=== PATIENT | male | born 1970 | race African-American/Black ===

== ENCOUNTER 2019-10-22 18:42 | Inpatient (IN) | payer OTHER ==
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
[2019-10-22 19:39] VITALS: BMI 21.8
[2019-10-22] MEDS ORDERED: MAG HYDROX/AL HYDROX/SIMETH 30 ML UNIT-DOSE CUP PO PRN (19:40)
[2019-10-22] MEDS ORDERED: ACETAMINOPHEN 325 MG TABLET (FP) PO PRN ×2 (19:40)
[2019-10-22] MEDS ORDERED: METHOCARBAMOL 500 MG TABLET PO PRN (19:40)
[2019-10-22] MEDS ORDERED: MAGNESIUM HYDROX 2400MG/30ML ORAL SUSPENSION 30 ML CUP PO PRN (19:40)
[2019-10-22] MEDS ORDERED: MAGNESIUM CITRATE 300 ML BOTTLE PO PRN (19:40)
[2019-10-22] MEDS ORDERED: NICOTINE POLACRILEX 2 MG GUM BUC PRN (19:40)
[2019-10-22] MEDS ORDERED: BISMUTH SUBSALICYLATE 524 MG/30 ML UD PO PRN (19:40)
[2019-10-22] MEDS ORDERED: IBUPROFEN 400 MG TABLET (FP) PO PRN (19:40)
[2019-10-22] MEDS ORDERED: diazePAM 5 MG TABLET PO PRN (19:40)
[2019-10-22] MEDS ORDERED: MENTHOL/PHENOL 1 EACH UD MM PRN (19:40)
[2019-10-22] MEDS ORDERED: ONDANSETRON *ODT* 4 MG TABLET SL PRN (19:40)
--- OUTSIDE RECORDS SUMMARY | 2019-10-22 19:57 | XMS ---
:1970 Author Organization [facility] Support Name Relationship Address Phone UE Unavailable Unavailable Unavailable [facility] [address] [place] [place] [address] Re-disclosure Warning The records that you are about to access may contain information from federally- assisted alcohol or drug abuse programs. If such information is present, then the following federally mandated warning applies: This information has been disclosed to you from records protected by federal confidentiality rules (42 CFR part 2). The federal rules prohibit you from making any further disclosure of this information unless further disclosure is expressly permitted by the written consent of the person to whom it pertains or as otherwise permitted by 42 CFR part 2. A general authorization for the release of medical or other information is NOT sufficient for this purpose. The Federal rules restrict any use of the information to criminally investigate or prosecute any alcohol or drug abuse patient.The records that you are about to access may contain highly sensitive health information, the redisclosure of which is protected by Article 27-F of the [facility] Public Health law. If you continue you may haveaccess to information: Regarding HIV / AIDS; Provided by facilities licensed or operated by the [facility] Office of Mental Health; or Provided by the [facility] Office for People With Developmental Disabilities. If such information is present, then the following [facility] mandated warning applies: This information has been disclosed to you from confidential records which are protected by state law. State law prohibits you from making any further disclosure of this information without the specific written consent of the person to whom it pertains, or as otherwise permitted by law. Any unauthorized further disclosure in violation of state law may result in a fine or chcf sentence or both. A general authorization for the release of medical or other information is NOT sufficient authorization for further disclosure. Insurance Providers Payer name Policy type Policy ID Covered Covered republican's Policy P keila / Coverage republican ID relationship to Pierre Inf ormation type pierre BEACON [id number] SP [id number] OSCAR
[2019-10-22] MEDS: ASPIRIN 81 MG CHEWABLE TABLETS PO SCH (21:43)
[2019-10-22] MEDS: NICOTINE 21 MG/24 HOURS TOPICAL PATCH TD SCH (21:43)
[2019-10-22] MEDS: PRENATAL VITAMINS W/ FOLIC ACID TABLET (FP) PO SCH (21:50)
[2019-10-22] MEDS: hydrOXYzine PAMOATE 25 MG CAPSULE (FP) PO SCH (22:45)
[2019-10-22] MEDS: THIAMINE HCL 100 MG TABLET (FP) PO SCH (22:45)
[2019-10-22] MEDS: diazePAM 5 MG TABLET PO SCH (22:45)
[2019-10-22] MEDS: MELATONIN 5 MG TABLETS PO SCH (22:46)
[2019-10-23] MEDS: diazePAM 5 MG TABLET PO SCH ×4 (06:01→22:04)
[2019-10-23] MEDS: hydrOXYzine PAMOATE 25 MG CAPSULE (FP) PO SCH (06:01)
[2019-10-23] MEDS ORDERED: hydrOXYzine PAMOATE 25 MG CAPSULE (FP) PO PRN (08:35)
--- NOTE | 2019-10-23 09:02 | EKG ---
Test Reason : Blood Pressure : / mmHG Vent. Rate : 061 BPM Atrial Rate : 061 BPM P-R Int : 148 ms QRS Dur : 082 ms QT Int : 384 ms P-R-T Axes : 064 061 021 degrees QTc Int : 386 ms NORMAL SINUS RHYTHM T WAVE ABNORMALITY, CONSIDER ANTERIOR ISCHEMIA ABNORMAL ECG NO PREVIOUS ECGS AVAILABLE Confirmed by MD KITTY, AJ ([id number]) on 10/23/2019 9:02:08 AM Referred By: Confirmed By:AJ TANG MD
--- NOTE | 2019-10-23 09:51 | PN ---
S CIWA - CIWA Score Nausea/Vomitin Muscle Tremors: 3 Anxiety: 2 Agitation: 2 Paroxysmal Sweats: 1-Minimal Palms Moist Orientation: 0-Oriented Tacttile Disturbances: 1-Very Mild Itch/Numbness Auditory Disturbances: 0-None Visual Disturbances: 0-None Headache: 2-Mild CIWA-Ar Total Score: 13 BHS Progress Note (SOAP) Subjective: alert,irritable,anxious,interrupted sleep,tremor Objective: 10/23/19 12:08 Vital Signs Temperature 98.5 F 10/23/19 08:48 Pulse Rate 82 10/23/19 08:48 Respiratory Rate 20 10/23/19 08:48 Blood Pressure 108/61 10/23/19 08:48 O2 Sat by Pulse Oximetry (%) 95 10/23/19 08:48 Laboratory Last Values WBC 5.2 K/mm3 (4.0-10.0) 10/23/19 07:45 RBC 4.37 M/mm3 (4.00-5.60) 10/23/19 07:45 Hgb 13.4 GM/dL (11.7-16.9) 10/23/19 07:45 Hct 40.0 % (35.4-49) 10/23/19 07:45 MCV 91.7 fl (80-96) 10/23/19 07:45 MCH 30.7 pg (25.7-33.7) 10/23/19 07:45 MCHC 33.5 g/dl (32.0-35.9) 10/23/19 07:45 RDW 14.0 % (11.9-15.9) 10/23/19 07:45 Plt Count 234 K/MM3 (134-434) 10/23/19 07:45 MPV 8.1 fl (7.5-11.1) 10/23/19 07:45 Sodium 138 mmol/L (136-145) 10/23/19 07:45 Potassium 3.9 mmol/L (3.5-5.1) 10/23/19 07:45 Chloride 103 mmol/L (98-107) 10/23/19 07:45 Carbon Dioxide 27 mmol/L (21-32) 10/23/19 07:45 Anion Gap 8 MMOL/L (8-16) 10/23/19 07:45 BUN 10.2 mg/dL (7-18) 10/23/19 07:45 Creatinine 0.8 mg/dL (0.55-1.3) 10/23/19 07:45 Est GFR (CKD-EPI)AfAm 123.29 10/23/19 07:45 Est GFR (CKD-EPI)NonAf 106.38 10/23/19 07:45 Random Glucose 80 mg/dL (74-106) 10/23/19 07:45 Calcium 9.0 mg/dL (8.5-10.1) 10/23/19 07:45 Total Bilirubin 1.6 mg/dL (0.2-1) H 10/23/19 07:45 AST 15 U/L (15-37) 10/23/19 07:45 ALT 18 U/L (13-61) 10/23/19 07:45 Alkaline Phosphatase 50 U/L (45-117) 10/23/19 07:45 Total Protein 6.9 g/dl (6.4-8.2) 10/23/19 07:45 Albumin 3.4 g/dl (3.4-5.0) 10/23/19 07:45 Syphilis Serology Non-reactive (NONREACTIVE) 10/23/19 07:45 HIV Ag/Ab Combo Qual Negative (NEGATIVE) 10/23/19 07:45 Assessment: 10/23/19 12:09 withdrawal symptom Plan: continue detox valium regimen,bili 1.6,to repeat bilirubin in am
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
[2019-10-23 10:31] LABS: HEMOGLOBIN 13.4 GM/dL (11.7-16.9); MCH 30.7 pg (25.7-33.7); MCHC 33.5 g/dl (32.0-35.9); MEAN CELL VOLUME 91.7 fl (80-96); MEAN PLT VOLUME 8.1 fl (7.5-11.1); PLATELET COUNT 234 K/MM3 (134-434); RBC 4.37 M/mm3 (4.00-5.60); WHITE BLOOD COUNT 5.2 K/mm3 (4.0-10.0)
[2019-10-23 10:46] LABS: POTASSIUM 3.9 mmol/L (3.5-5.1)
[2019-10-23 11:00] LABS: ALBUMIN 3.4 g/dl (3.4-5.0); BILIRUBIN,TOTAL 1.6 mg/dL (0.2-1); BLOOD UREA NITROGEN 10.2 mg/dL (7-18); CREATININE 0.8 mg/dL (0.55-1.3); TOT PROT 6.9 g/dl (6.4-8.2)
[2019-10-23] MEDS: PRENATAL VITAMINS W/ FOLIC ACID TABLET (FP) PO SCH (11:22)
[2019-10-23] MEDS: ASPIRIN 81 MG CHEWABLE TABLETS PO SCH (11:22)
[2019-10-23] MEDS: NICOTINE 21 MG/24 HOURS TOPICAL PATCH TD SCH (11:22)
[2019-10-23] MEDS ORDERED: PNEUMOC 13-VAL CONJ-DIP CRM/PF 0.5 ML DISP.SYRIN IM ONE (12:00)
[2019-10-23] MEDS: THIAMINE HCL 100 MG TABLET (FP) PO SCH (22:04)
[2019-10-23] MEDS: MELATONIN 5 MG TABLETS PO SCH (22:05)
[2019-10-24] MEDS: diazePAM 5 MG TABLET PO SCH ×3 (05:33→22:15)
[2019-10-24] MEDS ORDERED: guaiFENesin 200 MG/10 ML 10 ML UNIT-DOSE CUPS PO PRN (09:16)
--- NOTE | 2019-10-24 10:10 | PN ---
S CIWA - CIWA Score Nausea/Vomitin-No Nausea/No Vomiting Muscle Tremors: 2 Anxiety: 2 Agitation: 2 Paroxysmal Sweats: 2 Orientation: 0-Oriented Tacttile Disturbances: 0-None Auditory Disturbances: 0-None Visual Disturbances: 0-None Headache: 0-None Present CIWA-Ar Total Score: 8 BHS Progress Note (SOAP) Subjective: sweats cough Objective: 10/24/19 10:13 Vital Signs Temperature 98.0 F 10/24/19 08:09 Pulse Rate 69 10/24/19 08:09 Respiratory Rate 18 10/24/19 08:09 Blood Pressure 107/66 10/24/19 08:09 O2 Sat by Pulse Oximetry (%) 96 10/24/19 05:02 Laboratory Tests 10/22/19 10/23/19 10/23/19 20:30 07:45 07:45 WBC 5.2 RBC 4.37 Hgb 13.4 Hct 40.0 MCV 91.7 MCH 30.7 MCHC 33.5 RDW 14.0 Plt Count 234 MPV 8.1 Sodium Potassium Chloride Carbon Dioxide Anion Gap BUN Creatinine Est GFR (CKD-EPI)AfAm Est GFR (CKD-EPI)NonAf Random Glucose Calcium Total Bilirubin AST ALT Alkaline Phosphatase Total Protein Albumin Syphilis Serology Non-reactive COVID-19 (ALBERTA) Not detected HIV Ag/Ab Combo Qual 10/23/19 10/23/19 07:45 07:45 WBC RBC Hgb Hct MCV MCH MCHC RDW Plt Count MPV Sodium 138 Potassium 3.9 Chloride 103 Carbon Dioxide 27 Anion Gap 8 BUN 10.2 Creatinine 0.8 Est GFR (CKD-EPI)AfAm 123.29 Est GFR (CKD-EPI)NonAf 106.38 Random Glucose 80 Calcium 9.0 Total Bilirubin 1.6 H AST 15 ALT 18 Alkaline Phosphatase 50 Total Protein 6.9 Albumin 3.4 Syphilis Serology COVID-19 (ALBERTA) HIV Ag/Ab Combo Qual Negative aaox3 ambulating no acute distress Assessment: 10/24/19 10:13 withdrawals sx Plan: continue detox roboxin prn
[2019-10-24] MEDS: NICOTINE 21 MG/24 HOURS TOPICAL PATCH TD SCH (10:43)
[2019-10-24] MEDS: ASPIRIN 81 MG CHEWABLE TABLETS PO SCH (10:43)
[2019-10-24] MEDS: PRENATAL VITAMINS W/ FOLIC ACID TABLET (FP) PO SCH (10:44)
[2019-10-24] MEDS: THIAMINE HCL 100 MG TABLET (FP) PO SCH (22:10)
[2019-10-24] MEDS: MELATONIN 5 MG TABLETS PO SCH (22:15)
[2019-10-25] MEDS ORDERED: diazePAM 5 MG TABLET PO SCH (06:00)
[2019-10-25 09:47] VITALS: BP 126/80; PULSE 92; TEMP 97.1
--- NOTE | 2019-10-25 09:59 | PN ---
[facility] CIWA - CIWA Score Nausea/Vomitin-No Nausea/No Vomiting Muscle Tremors: None Anxiety: 1-Mildly Anxious Agitation: 0-Normal Activity Paroxysmal Sweats: No Perspiration Orientation: 0-Oriented Tacttile Disturbances: 0-None Auditory Disturbances: 0-None Visual Disturbances: 0-None Headache: 0-None Present CIWA-Ar Total Score: 1 S Progress Note (SOAP) Subjective: alert,no complaint Objective: 10/25/19 11:43 Vital Signs Temperature 97.1 F L 10/25/19 09:10 Pulse Rate 92 H 10/25/19 09:10 Respiratory Rate 17 10/25/19 09:10 Blood Pressure 126/80 10/25/19 09:10 O2 Sat by Pulse Oximetry (%) 98 10/25/19 09:10 Assessment: 10/25/19 11:44 no withdrawal symptom Plan: stable discharge today,follow up with after care program as arrangement [facility]
--- NOTE | 2019-10-25 10:09 | DS ---
[facility] Detox Discharge Summary Admission Date: 10/22/19 Discharge Date: 10/25/19 - History Present History: Alcohol Dependence, Cocaine Dependence Additional Comments: alert,oriented x 3 lung clear on auscultation bilaterally ambulation on the unit no swelling of legs abdomen soft,no distension,no pain,no tenderness stable for discharge,no withdrawal symptom follow up with after care program [facility] as arrangement total time discharge 35 minutes Pertinent Past History: schizophrenia schizoaffective disorder bronchitis - Physical Exam Results Vital Signs: Vital Signs Temperature 97.1 F L 10/25/19 09:10 Pulse Rate 92 H 10/25/19 09:10 Respiratory Rate 17 10/25/19 09:10 Blood Pressure 126/80 10/25/19 09:10 O2 Sat by Pulse Oximetry (%) 98 10/25/19 09:10 Pertinent Admission Physical Exam Findings: withdrawal signs and symptom Vital Signs Temperature 97.1 F L 10/25/19 09:10 Pulse Rate 92 H 10/25/19 09:10 Respiratory Rate 17 10/25/19 09:10 Blood Pressure 126/80 10/25/19 09:10 O2 Sat by Pulse Oximetry (%) 98 10/25/19 09:10 Vital Signs Temperature 97.1 F L 10/25/19 09:10 Pulse Rate 92 H 10/25/19 09:10 Respiratory Rate 17 10/25/19 09:10 Blood Pressure 126/80 10/25/19 09:10 O2 Sat by Pulse Oximetry (%) 98 10/25/19 09:10 Laboratory Last Values WBC 5.2 K/mm3 (4.0-10.0) 10/23/19 07:45 RBC 4.37 M/mm3 (4.00-5.60) 10/23/19 07:45 Hgb 13.4 GM/dL (11.7-16.9) 10/23/19 07:45 Hct 40.0 % (35.4-49) 10/23/19 07:45 MCV 91.7 fl (80-96) 10/23/19 07:45 MCH 30.7 pg (25.7-33.7) 10/23/19 07:45 MCHC 33.5 g/dl (32.0-35.9) 10/23/19 07:45 RDW 14.0 % (11.9-15.9) 10/23/19 07:45 Plt Count 234 K/MM3 (134-434) 10/23/19 07:45 MPV 8.1 fl (7.5-11.1) 10/23/19 07:45 Sodium 138 mmol/L (136-145) 10/23/19 07:45 Potassium 3.9 mmol/L (3.5-5.1) 10/23/19 07:45 Chloride 103 mmol/L (98-107) 10/23/19 07:45 Carbon Dioxide 27 mmol/L (21-32) 10/23/19 07:45 Anion Gap 8 MMOL/L (8-16) 10/23/19 07:45 BUN 10.2 mg/dL (7-18) 10/23/19 07:45 Creatinine 0.8 mg/dL (0.55-1.3) 10/23/19 07:45 Est GFR (CKD-EPI)AfAm 123.29 10/23/19 07:45 Est GFR (CKD-EPI)NonAf 106.38 10/23/19 07:45 Random Glucose 80 mg/dL (74-106) 10/23/19 07:45 Calcium 9.0 mg/dL (8.5-10.1) 10/23/19 07:45 Total Bilirubin 1.6 mg/dL (0.2-1) H 10/23/19 07:45 AST 15 U/L (15-37) 10/23/19 07:45 ALT 18 U/L (13-61) 10/23/19 07:45 Alkaline Phosphatase 50 U/L (45-117) 10/23/19 07:45 Total Protein 6.9 g/dl (6.4-8.2) 10/23/19 07:45 Albumin 3.4 g/dl (3.4-5.0) 10/23/19 07:45 Syphilis Serology Non-reactive (NONREACTIVE) 10/23/19 07:45 COVID-19 (ALBERTA) Not detected (Not Detected) 10/22/19 20:30 HIV Ag/Ab Combo Qual Negative (NEGATIVE) 10/23/19 07:45 - Treatment Hospital Course: Detox Protocol Followed, Detoxed Safely, Responded well, D ischarged Condition Good, Rehab Referral Accepted Patient has Accepted a Rehab Referral to: [facility] - Medication Discharge Medications: Ambulatory Orders Ibuprofen 400 mg PO BID 10/22/19 Albuterol Sulfate Inhaler - [Ventolin HFA Inhaler -] 2 inh IH Q4H PRN #1 inh 10/25/19 Aspirin 81 mg PO DAILY 10/25/19 - Diagnosis (1) Alcohol dependence with withdrawal Status: Acute (2) Cocaine abuse Status: Acute (3) Bronchitis Status: Chronic (4) Nicotine dependence Status: Chronic (5) Osteoarthritis Status: Chronic (6) Schizophrenia Status: Chronic (7) Schizoaffective disorder Status: Ruled-out - AMA Did Patient Leave Against Medical Advice: No
[2019-10-25] MEDS: ASPIRIN 81 MG CHEWABLE TABLETS PO SCH (10:31)
[2019-10-25] MEDS: NICOTINE 21 MG/24 HOURS TOPICAL PATCH TD SCH (10:31)
[2019-10-25] MEDS: PRENATAL VITAMINS W/ FOLIC ACID TABLET (FP) PO SCH (10:31)
[2019-10-26] MEDS ORDERED: diazePAM 5 MG TABLET PO ONE (06:00)
== END 2019-10-25 12:31 | disposition other institution (70) | DRG 774 ==
LOC: YASAS 18:42 → Y6N 19:50
PROVIDERS: ADMIT Allergy & Immunology; ATTEND Allergy & Immunology
PROC: HZ2ZZZZ Detoxification Services for Substance Abuse Treatment (ICD-10-PCS; principal; 2019-10-22)
DX: F10.230 Alcohol dependence with withdrawal, uncomplicated (principal); F14.20 Cocaine dependence, uncomplicated; F12.20 Cannabis dependence, uncomplicated; F17.210 Nicotine dependence, cigarettes, uncomplicated; F20.9 Schizophrenia, unspecified; F19.282 Other psychoactive substance dependence with psychoactive substance-induced sleep disorder; J42 Unspecified chronic bronchitis; M19.90 Unspecified osteoarthritis, unspecified site; Z88.8 Allergy status to other drugs, medicaments and biological substances; Z91.013 Allergy to seafood; Z56.0 Unemployment, unspecified; Z59.0 Homelessness
CPT/HCPCS: 36415; 80053; 85027; 86780; 87389; 90670; 93005; 93010; U0003

== ENCOUNTER 2019-10-25 13:15 | Inpatient (IN) | payer OTHER ==
[2019-10-25 13:58] VITALS: BP 127/67; PULSE 69; TEMP 97.8
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
[2019-10-25] MEDS ORDERED: P-EPHED 60MG/TRIPROLIDI 2.5MG TABLET PO PRN (15:29)
[2019-10-25] MEDS ORDERED: NICOTINE POLACRILEX 4 MG GUM BUC PRN (15:29)
[2019-10-25] MEDS ORDERED: ACETAMINOPHEN 325 MG TABLET (FP) PO PRN (15:29)
[2019-10-25] MEDS ORDERED: IBUPROFEN 400 MG TABLET (FP) PO PRN (15:29)
[2019-10-25] MEDS ORDERED: guaiFENesin 200 MG/10 ML 10 ML UNIT-DOSE CUPS PO PRN (15:29)
[2019-10-25] MEDS ORDERED: LOPERAMIDE HCL 2 MG CAPSULE PO PRN (15:29)
[2019-10-25] MEDS ORDERED: MAGNESIUM HYDROX 2400MG/30ML ORAL SUSPENSION 30 ML CUP PO PRN (15:29)
[2019-10-25] MEDS ORDERED: hydrOXYzine PAMOATE 25 MG CAPSULE (FP) PO PRN (15:29)
[2019-10-25] MEDS ORDERED: MAGNESIUM CITRATE 300 ML BOTTLE PO PRN (15:29)
[2019-10-25] MEDS ORDERED: MAG HYDROX/AL HYDROX/SIMETH 30 ML UNIT-DOSE CUP PO PRN (15:29)
[2019-10-25] MEDS ORDERED: MENTHOL/PHENOL 1 EACH UD MM PRN (15:29)
--- NOTE | 2019-10-25 18:32 | DS ---
[facility] Rehab Discharge Summary - [facility] Rehab Discharge Summary Admission Date: 10/25/19 Discharge Date: 10/25/19 - History Present History: Alcohol dependence, Cocaine dependence Additional Comments: Pt admitted to rehab from [address] [place] [address] post alcohol detox. Pertinent Past History: PMHx:Alcohol use disorder; cocaine use disorder; Osteoathritis; Walks with a walker. MHHx:Schizophrenia - Discharge Physical Exam Vital Signs: Vital Signs Temperature 97.8 F 10/25/19 13:57 Pulse Rate 69 10/25/19 13:57 Respiratory Rate 18 10/25/19 13:57 Blood Pressure 127/67 10/25/19 13:57 O2 Sat by Pulse Oximetry (%) 99 10/25/19 13:57 - Treatment Discharge Condition: Discharge condition good Hospital Course: Patient transferred to rehab a few hours ago and decided not to stay. Patient left unit AMA prior to being examined by this provider. - Medication Discharge Medications: Ambulatory Orders Ibuprofen 400 mg PO BID 10/22/19 Albuterol Sulfate Inhaler - [Ventolin HFA Inhaler -] 2 inh IH Q4H PRN #1 inh 10/25/19 Aspirin 81 mg PO DAILY 10/25/19 - Medication-Assisted Treatment (MAT) Medication-Assisted Treatment (MAT): No - Discharge Instructions Diet, activity, other medical instructions: Diet: Activity: Other medical instructions: - Diagnosis (1) Moderate alcohol dependence in early remission Current Visit: Yes Status: Acute (2) Cocaine abuse Current Visit: Yes Status: Chronic (3) Nicotine dependence Current Visit: Yes Status: Chronic Qualifiers: Nicotine product type: cigarettes Substance use status: uncomplicated Qualified Code(s): F17.210 - Nicotine dependence, cigarettes, uncomplicated - Follow-up Referral Minutes to complete discharge: 15 - AMA Did Patient Leave Against Medical Advice: Yes Additional Comments: Patient left AMA prior to being seen by this provider
--- NOTE | 2019-10-25 18:32 | PN ---
[facility] Progress Note Note: Patient transferred from [facility] 3 hours ago and has now decided does not want rehab. Patient left uNit prioR to thiS provider seeing hiM. Patient discharged AMA.
[2019-10-25] MEDS ORDERED: MELATONIN 5 MG TABLETS PO SCH (22:00)
[2019-10-25] MEDS ORDERED: THIAMINE HCL 100 MG TABLET (FP) PO SCH (22:00)
[2019-10-26] MEDS ORDERED: PRENATAL VITAMINS W/ FOLIC ACID TABLET (FP) PO SCH (10:00)
[2019-10-26] MEDS ORDERED: NICOTINE 21 MG/24 HOURS TOPICAL PATCH TD SCH (10:00)
== END 2019-10-25 18:30 | disposition left against medical advice (07) | DRG 770 ==
LOC: YASAS 13:15 → Y5N 13:16
PROVIDERS: ADMIT Allergy & Immunology; ATTEND Allergy & Immunology
PROC: HZ42ZZZ Group Counseling for Substance Abuse Treatment, Cognitive-Behavioral (ICD-10-PCS; principal; 2019-10-25)
DX: F10.20 Alcohol dependence, uncomplicated (principal); F14.20 Cocaine dependence, uncomplicated; F17.210 Nicotine dependence, cigarettes, uncomplicated; F20.9 Schizophrenia, unspecified; M19.90 Unspecified osteoarthritis, unspecified site; Z18.89 Other specified retained foreign body fragments; Z99.89 Dependence on other enabling machines and devices

== ENCOUNTER 2019-12-23 11:17 | Inpatient (IN) | payer OTHER ==
[2019-12-23 17:09] VITALS: BMI 46.9
[2019-12-23] MEDS ORDERED: MAG HYDROX/AL HYDROX/SIMETH 30 ML UNIT-DOSE CUP PO PRN (17:10)
[2019-12-23] MEDS ORDERED: MAGNESIUM HYDROX 2400MG/30ML ORAL SUSPENSION 30 ML CUP PO PRN (17:10)
[2019-12-23] MEDS ORDERED: ACETAMINOPHEN 325 MG TABLET (FP) PO PRN (17:10)
[2019-12-23] MEDS ORDERED: P-EPHED 60MG/TRIPROLIDI 2.5MG TABLET PO PRN (17:10)
[2019-12-23] MEDS ORDERED: NICOTINE POLACRILEX 2 MG GUM BC PRN (17:10)
[2019-12-23] MEDS ORDERED: MAGNESIUM CITRATE 300 ML BOTTLE PO PRN (17:10)
[2019-12-23] MEDS ORDERED: guaiFENesin 200 MG/10 ML 10 ML UNIT-DOSE CUPS PO PRN (17:10)
[2019-12-23] MEDS ORDERED: LOPERAMIDE HCL 2 MG CAPSULE PO PRN (17:10)
[2019-12-23] MEDS: PRENATAL VITAMINS W/ FOLIC ACID TABLET (FP) PO SCH (19:13)
[2019-12-23] MEDS: NICOTINE 21 MG/24 HOURS TOPICAL PATCH TD SCH (19:13)
[2019-12-23] MEDS: hydrOXYzine PAMOATE 25 MG CAPSULE (FP) PO SCH ×2 (19:13→21:41)
[2019-12-23] MEDS ORDERED: MASKS NR ONE (21:39)
[2019-12-23] MEDS: MELATONIN 5 MG TABLETS PO SCH (21:41)
[2019-12-23] MEDS: THIAMINE HCL 100 MG TABLET (FP) PO SCH (21:41)
[2019-12-24] MEDS: hydrOXYzine PAMOATE 25 MG CAPSULE (FP) PO SCH ×5 (06:33→21:12)
[2019-12-24 09:00] LABS: HEMATOCRIT 39.7 % (35.4-49); MCH 29.6 pg (25.7-33.7); MCHC 32.7 g/dl (32.0-35.9); MEAN CELL VOLUME 90.4 fl (80-96); MEAN PLT VOLUME 7.8 fl (7.5-11.1); PLATELET COUNT 197 K/MM3 (134-434); RDW 14.1 % (11.9-15.9); WHITE BLOOD COUNT 3.9 K/mm3 (4.0-10.0)
[2019-12-24 09:03] LABS: POTASSIUM 3.9 mmol/L (3.5-5.1)
[2019-12-24 09:08] LABS: CALCIUM 8.4 mg/dL (8.5-10.1)
[2019-12-24 09:09] LABS: ALBUMIN 3.3 g/dl (3.4-5.0)
[2019-12-24 09:12] LABS: CREATININE 0.7 mg/dL (0.55-1.3)
[2019-12-24 09:13] LABS: BILIRUBIN,TOTAL 0.9 mg/dL (0.2-1)
[2019-12-24 09:14] LABS: TOT PROT 6.7 g/dl (6.4-8.2)
[2019-12-24] MEDS: NICOTINE 21 MG/24 HOURS TOPICAL PATCH TD SCH (09:23)
[2019-12-24] MEDS: PRENATAL VITAMINS W/ FOLIC ACID TABLET (FP) PO SCH (09:23)
[2019-12-24] MEDS: IBUPROFEN 400 MG TABLET (FP) PO PRN (09:24)
[2019-12-24] MEDS: METHYL SALICYLATE/MENTHOL OINT 30 GM TUBE TP SCH ×2 (15:36→21:12)
[2019-12-24] MEDS: MELATONIN 5 MG TABLETS PO SCH (21:12)
[2019-12-24] MEDS: THIAMINE HCL 100 MG TABLET (FP) PO SCH (21:12)
[2019-12-25] MEDS: hydrOXYzine PAMOATE 25 MG CAPSULE (FP) PO SCH ×5 (06:47→21:36)
[2019-12-25] MEDS: METHYL SALICYLATE/MENTHOL OINT 30 GM TUBE TP SCH ×2 (09:25→21:37)
[2019-12-25] MEDS: PRENATAL VITAMINS W/ FOLIC ACID TABLET (FP) PO SCH (09:25)
[2019-12-25] MEDS: NICOTINE 21 MG/24 HOURS TOPICAL PATCH TD SCH (09:25)
[2019-12-25] MEDS: IBUPROFEN 400 MG TABLET (FP) PO PRN (09:29)
[2019-12-25 10:37] LABS: EPI CELLS 7 /uL (0-25.1); HYALINE CASTS 1 /uL (0-3.1); PH,URINE 5.5 (5.0-8.0); URINE APPEARANCE CLEAR; URINE BACTERIA 89 /uL (0-1359); URINE BILIRUBIN NEGATIVE (NEGATIVE); URINE COLOR YELLOW; URINE GLUCOSE (UA) NEGATIVE (NEGATIVE); URINE KETONE NEGATIVE (NEGATIVE); URINE LEUK ESTERASE TRACE (NEGATIVE); URINE NITRITE NEGATIVE (NEGATIVE); URINE PROTEIN NEGATIVE (NEGATIVE); URINE RBC 3 /uL (0-23.9); URINE UROBILINOGEN 0.2 mg/dL (0.2-1.0); URINE WBC 49 /uL (0-25.8)
[2019-12-25] MEDS ORDERED: BENZTROPINE MESYLATE 0.5 MG TABLET (FP) PO SCH (11:45)
[2019-12-25] MEDS: risperiDONE 1 MG TABLET PO SCH ×2 (11:56→21:36)
[2019-12-25] MEDS: MELATONIN 5 MG TABLETS PO SCH (21:36)
[2019-12-25] MEDS: THIAMINE HCL 100 MG TABLET (FP) PO SCH (21:36)
[2019-12-26 06:47] VITALS: BP 118/71; PULSE 95; TEMP 98.4
[2019-12-26] MEDS: hydrOXYzine PAMOATE 25 MG CAPSULE (FP) PO SCH ×3 (07:11→13:16)
[2019-12-26] MEDS: PRENATAL VITAMINS W/ FOLIC ACID TABLET (FP) PO SCH (09:23)
[2019-12-26] MEDS: NICOTINE 21 MG/24 HOURS TOPICAL PATCH TD SCH (09:23)
[2019-12-26] MEDS: METHYL SALICYLATE/MENTHOL OINT 30 GM TUBE TP SCH (09:24)
[2019-12-26] MEDS: risperiDONE 1 MG TABLET PO SCH (09:25)
[2019-12-26] MEDS ORDERED: ALBUTEROL SO4 HFA INHALER IH PRN (12:59)
== END 2019-12-26 13:53 | disposition left against medical advice (07) | DRG 770 ==
LOC: YASAS 11:17 → Y5N 17:57
PROVIDERS: ADMIT Allergy & Immunology; ATTEND Allergy & Immunology
PROC: HZ2ZZZZ Detoxification Services for Substance Abuse Treatment (ICD-10-PCS; principal; 2019-12-23)
DX: F10.20 Alcohol dependence, uncomplicated (principal); F14.20 Cocaine dependence, uncomplicated; F12.20 Cannabis dependence, uncomplicated; F17.210 Nicotine dependence, cigarettes, uncomplicated; F20.9 Schizophrenia, unspecified; F19.282 Other psychoactive substance dependence with psychoactive substance-induced sleep disorder; F32.9 Major depressive disorder, single episode, unspecified; M19.90 Unspecified osteoarthritis, unspecified site; F41.9 Anxiety disorder, unspecified; J45.909 Unspecified asthma, uncomplicated; Z96.642 Presence of left artificial hip joint; Z99.89 Dependence on other enabling machines and devices; Z98.890 Other specified postprocedural states; Z91.013 Allergy to seafood; Z88.8 Allergy status to other drugs, medicaments and biological substances; Z91.5 Personal history of self-harm; Z56.0 Unemployment, unspecified; Z59.0 Homelessness; Z18.89 Other specified retained foreign body fragments
CPT/HCPCS: 36415; 80053; 81003; 85027; 86780; C9803; J2794; U0003

== ENCOUNTER 2020-04-03 10:15 | Inpatient (IN) | payer OTHER ==
[2020-04-03 11:42] VITALS: BMI 21.4
[2020-04-03] MEDS ORDERED: chlordiazePOXIDE HCL 25 MG CAPSULE PO PRN (12:12)
[2020-04-03] MEDS ORDERED: NICOTINE POLACRILEX 2 MG GUM BUC PRN (12:12)
[2020-04-03] MEDS ORDERED: MAGNESIUM HYDROX 2400MG/30ML ORAL SUSPENSION 30 ML CUP PO PRN (12:12)
[2020-04-03] MEDS ORDERED: ONDANSETRON *ODT* 4 MG TABLET SL PRN (12:12)
[2020-04-03] MEDS ORDERED: BISMUTH SUBSALICYLATE 524 MG/30 ML UD PO PRN (12:12)
[2020-04-03] MEDS ORDERED: MAGNESIUM CITRATE 300 ML BOTTLE PO PRN (12:12)
[2020-04-03] MEDS ORDERED: METHOCARBAMOL 500 MG TABLET PO PRN (12:12)
[2020-04-03] MEDS ORDERED: MENTHOL/PHENOL 1 EACH UD MM PRN (12:12)
[2020-04-03] MEDS ORDERED: ACETAMINOPHEN 325 MG TABLET (FP) PO PRN ×2 (12:12)
[2020-04-03] MEDS ORDERED: MAG HYDROX/AL HYDROX/SIMETH 30 ML UNIT-DOSE CUP PO PRN (12:12)
[2020-04-03] MEDS ORDERED: ALBUTEROL SO4 HFA INHALER IH PRN (12:18)
[2020-04-03] MEDS: chlordiazePOXIDE HCL 25 MG CAPSULE PO SCH ×3 (13:12→23:09)
[2020-04-03] MEDS: IBUPROFEN 400 MG TABLET (FP) PO PRN ×2 (13:13→18:29)
[2020-04-03] MEDS: hydrOXYzine PAMOATE 25 MG CAPSULE (FP) PO SCH ×3 (13:15→23:09)
[2020-04-03] MEDS: NICOTINE 14 MG/24 HOURS TOPICAL PATCH TD SCH (13:15)
[2020-04-03] MEDS: PRENATAL VITAMINS W/ FOLIC ACID TABLET (FP) PO SCH (13:15)
[2020-04-03 15:31] LABS: HEMATOCRIT 40.4 % (35.4-49); HEMOGLOBIN 13.5 GM/dL (11.7-16.9); MCH 30.5 pg (25.7-33.7); MCHC 33.5 g/dl (32.0-35.9); MEAN CELL VOLUME 90.9 fl (80-96); MEAN PLT VOLUME 7.5 fl (7.5-11.1); PLATELET COUNT 287 K/MM3 (134-434); RBC 4.44 M/mm3 (4.00-5.60); RDW 14.4 % (11.9-15.9); WHITE BLOOD COUNT 3.9 K/mm3 (4.0-10.0)
[2020-04-03 15:32] LABS: POTASSIUM 4.3 mmol/L (3.5-5.1)
[2020-04-03 15:34] LABS: ALBUMIN 3.7 g/dl (3.4-5.0); BLOOD UREA NITROGEN 7.6 mg/dL (7-18)
[2020-04-03 15:36] LABS: CALCIUM 9.1 mg/dL (8.5-10.1)
[2020-04-03 15:39] LABS: BILIRUBIN,TOTAL 0.5 mg/dL (0.2-1)
[2020-04-03 15:40] LABS: CREATININE 0.7 mg/dL (0.55-1.3); TOT PROT 7.6 g/dl (6.4-8.2)
[2020-04-03 16:31] LABS: HIV INTERPRETATION NEGATIVE (NEGATIVE)
[2020-04-03] MEDS: MELATONIN 5 MG TABLETS PO SCH (23:08)
[2020-04-03] MEDS: THIAMINE HCL 100 MG TABLET (FP) PO SCH (23:09)
[2020-04-04] MEDS: chlordiazePOXIDE HCL 25 MG CAPSULE PO SCH ×4 (05:26→23:48)
[2020-04-04] MEDS: hydrOXYzine PAMOATE 25 MG CAPSULE (FP) PO SCH ×5 (05:27→23:47)
[2020-04-04] MEDS: PRENATAL VITAMINS W/ FOLIC ACID TABLET (FP) PO SCH (10:19)
[2020-04-04] MEDS: NICOTINE 14 MG/24 HOURS TOPICAL PATCH TD SCH (10:19)
[2020-04-04] MEDS: MELATONIN 5 MG TABLETS PO SCH (23:47)
[2020-04-04] MEDS: THIAMINE HCL 100 MG TABLET (FP) PO SCH (23:47)
[2020-04-05] MEDS: hydrOXYzine PAMOATE 25 MG CAPSULE (FP) PO SCH ×2 (05:37→10:23)
[2020-04-05] MEDS: chlordiazePOXIDE HCL 25 MG CAPSULE PO SCH ×4 (05:37→22:18)
[2020-04-05] MEDS: NICOTINE 14 MG/24 HOURS TOPICAL PATCH TD SCH (10:21)
[2020-04-05] MEDS: PRENATAL VITAMINS W/ FOLIC ACID TABLET (FP) PO SCH (10:22)
[2020-04-05] MEDS: IBUPROFEN 400 MG TABLET (FP) PO PRN (10:23)
[2020-04-05] MEDS ORDERED: hydrOXYzine PAMOATE 25 MG CAPSULE (FP) PO PRN (11:44)
[2020-04-05] MEDS: THIAMINE HCL 100 MG TABLET (FP) PO SCH (22:18)
[2020-04-05] MEDS: MELATONIN 5 MG TABLETS PO SCH (22:18)
[2020-04-06] MEDS ORDERED: chlordiazePOXIDE HCL 10 MG CAPSULE PO PRN
[2020-04-06] MEDS: chlordiazePOXIDE HCL 10 MG CAPSULE PO SCH ×2 (06:18→10:15)
[2020-04-06] MEDS: PRENATAL VITAMINS W/ FOLIC ACID TABLET (FP) PO SCH (10:15)
[2020-04-06] MEDS: NICOTINE 14 MG/24 HOURS TOPICAL PATCH TD SCH (10:17)
[2020-04-06 11:18] VITALS: BP 118/74; PULSE 77; TEMP 97.7
[2020-04-07] MEDS ORDERED: chlordiazePOXIDE HCL 10 MG CAPSULE PO SCH (05:00)
[2020-04-08] MEDS ORDERED: chlordiazePOXIDE HCL 10 MG CAPSULE PO ONE (05:00)
== END 2020-04-06 13:35 | disposition home or self-care (01) | DRG 774 ==
LOC: YASAS 10:15 → Y6N 12:13
PROVIDERS: ADMIT Allergy & Immunology; ATTEND Allergy & Immunology
PROC: HZ2ZZZZ Detoxification Services for Substance Abuse Treatment (ICD-10-PCS; principal; 2020-04-03)
DX: F10.230 Alcohol dependence with withdrawal, uncomplicated (principal); F14.20 Cocaine dependence, uncomplicated; F12.20 Cannabis dependence, uncomplicated; F17.210 Nicotine dependence, cigarettes, uncomplicated; F20.9 Schizophrenia, unspecified; F19.24 Other psychoactive substance dependence with psychoactive substance-induced mood disorder; F41.8 Other specified anxiety disorders; F32.9 Major depressive disorder, single episode, unspecified; H54.61 Unqualified visual loss, right eye, normal vision left eye; J45.909 Unspecified asthma, uncomplicated; M19.90 Unspecified osteoarthritis, unspecified site; Z88.8 Allergy status to other drugs, medicaments and biological substances; Z56.0 Unemployment, unspecified; Z59.0 Homelessness
CPT/HCPCS: 36415; 80053; 85027; 86780; 87389; C9803; U0003

== ENCOUNTER 2020-08-03 14:30 | Inpatient (IN) | payer OTHER ==
[2020-08-03 18:03] VITALS: BMI 19.3
[2020-08-03] MEDS ORDERED: NICOTINE POLACRILEX 2 MG GUM BC PRN (19:05)
[2020-08-03] MEDS ORDERED: guaiFENesin 200 MG/10 ML 10 ML UNIT-DOSE CUPS PO PRN (19:05)
[2020-08-03] MEDS ORDERED: MAG HYDROX/AL HYDROX/SIMETH 30 ML UNIT-DOSE CUP PO PRN (19:05)
[2020-08-03] MEDS ORDERED: MAGNESIUM CITRATE 300 ML BOTTLE PO PRN (19:05)
[2020-08-03] MEDS ORDERED: P-EPHED 60MG/TRIPROLIDI 2.5MG TABLET PO PRN (19:05)
[2020-08-03] MEDS ORDERED: LOPERAMIDE HCL 2 MG CAPSULE PO PRN (19:05)
[2020-08-03] MEDS ORDERED: ACETAMINOPHEN 325 MG TABLET (FP) PO PRN (19:05)
[2020-08-03] MEDS ORDERED: MAGNESIUM HYDROX 2400MG/30ML ORAL SUSPENSION 30 ML CUP PO PRN (19:05)
[2020-08-03] MEDS ORDERED: IBUPROFEN 400 MG TABLET (FP) PO PRN (19:05)
[2020-08-04] MEDS: THIAMINE HCL 100 MG TABLET (FP) PO SCH ×2 (00:38→21:24)
[2020-08-04] MEDS: MELATONIN 5 MG TABLETS PO SCH ×2 (00:38→21:24)
[2020-08-04] MEDS: PRENATAL VITAMINS W/ FOLIC ACID TABLET (FP) PO SCH (09:53)
[2020-08-04] MEDS: NICOTINE 7 MG/24 HOURS TOPICAL PATCH TD SCH (09:55)
[2020-08-04 10:22] LABS: HEMATOCRIT 43.4 % (35.4-49); HEMOGLOBIN 14.2 GM/dL (11.7-16.9); MCH 29.3 pg (25.7-33.7); MCHC 32.8 g/dl (32.0-35.9); MEAN CELL VOLUME 89.3 fl (80-96); MEAN PLT VOLUME 7.5 fl (7.5-11.1); PLATELET COUNT 269 10^3/uL (134-434); RBC 4.86 M/mm3 (4.00-5.60); WHITE BLOOD COUNT 3.8 K/mm3 (4.0-10.0)
[2020-08-04 10:29] LABS: ALBUMIN 3.6 g/dl (3.4-5.0); BLOOD UREA NITROGEN 8.2 mg/dL (7-18)
[2020-08-04 10:33] LABS: CREATININE 0.7 mg/dL (0.55-1.3)
[2020-08-04 10:36] LABS: TOT PROT 7.3 g/dl (6.4-8.2)
[2020-08-04] MEDS: hydrOXYzine PAMOATE 25 MG CAPSULE (FP) PO PRN (11:56)
[2020-08-04 16:04] LABS: URINE APPEARANCE CLEAR; URINE BILIRUBIN NEGATIVE (NEGATIVE); URINE COLOR YELLOW; URINE GLUCOSE (UA) TRACE (NEGATIVE); URINE KETONE NEGATIVE (NEGATIVE); URINE LEUK ESTERASE NEGATIVE (NEGATIVE); URINE NITRITE NEGATIVE (NEGATIVE); URINE PROTEIN NEGATIVE (NEGATIVE)
[2020-08-05 06:50] VITALS: BP 118/70; PULSE 74; TEMP 97.8
[2020-08-05] MEDS: PRENATAL VITAMINS W/ FOLIC ACID TABLET (FP) PO SCH (10:01)
[2020-08-05] MEDS: hydrOXYzine PAMOATE 25 MG CAPSULE (FP) PO PRN (10:01)
[2020-08-05] MEDS: NICOTINE 7 MG/24 HOURS TOPICAL PATCH TD SCH (10:02)
== END 2020-08-05 15:25 | disposition home or self-care (01) | DRG 772 ==
LOC: YASAS 14:30 → Y3W 18:50 → UNDOADMIN 18:50 → Y3W 23:39
PROVIDERS: ADMIT Allergy & Immunology; ATTEND Allergy & Immunology
PROC: HZ42ZZZ Group Counseling for Substance Abuse Treatment, Cognitive-Behavioral (ICD-10-PCS; principal; 2020-08-03)
DX: F10.20 Alcohol dependence, uncomplicated (principal); F12.20 Cannabis dependence, uncomplicated; F17.210 Nicotine dependence, cigarettes, uncomplicated; F20.9 Schizophrenia, unspecified; F19.24 Other psychoactive substance dependence with psychoactive substance-induced mood disorder; H54.61 Unqualified visual loss, right eye, normal vision left eye; R26.89 Other abnormalities of gait and mobility; S63.502D Unspecified sprain of left wrist, subsequent encounter; V78 Bus occupant injured in noncollision transport accident
CPT/HCPCS: 36415; 80053; 81003; 85027; 86780; C9803; U0003; U0005

== ENCOUNTER 2020-08-03 20:43 | Emergency (ER) | payer OTHER ==
[2020-08-03 21:14] VITALS: BP 112/72; PULSE 70; TEMP 97.7; BMI 19.3
[2020-08-03] MEDS ORDERED: IBUPROFEN 600 MG TABLET (FP) PO ONE ×2 (21:57→22:00)
== END 2020-08-03 23:31 | disposition home or self-care (01) ==
LOC: JER 20:43
DX: M25.532 Pain in left wrist (principal)
CPT/HCPCS: 73110-TC-LT-FY; 73130-TC-LT-FY; 99283-25

== ENCOUNTER 2020-11-10 13:05 | Inpatient (IN) | payer OTHER ==
[2020-11-10] MEDS ORDERED: MENTHOL/PHENOL 1 EACH UD MM PRN (14:21)
[2020-11-10] MEDS ORDERED: MAGNESIUM CITRATE 300 ML BOTTLE PO PRN (14:21)
[2020-11-10] MEDS ORDERED: NICOTINE 21 MG/24 HOURS TOPICAL PATCH TD PRN (14:21)
[2020-11-10] MEDS ORDERED: NICOTINE 10 MG CARTRIDGE (INHALER) IH PRN (14:21)
[2020-11-10] MEDS ORDERED: BISMUTH SUBSALICYLATE 524 MG/30 ML PO PRN (14:21)
[2020-11-10] MEDS ORDERED: MAGNESIUM HYDROX 2400MG/30ML ORAL SUSPENSION 30 ML CUP PO PRN (14:21)
[2020-11-10] MEDS ORDERED: MAG HYDROX/AL HYDROX/SIMETH 30 ML UNIT-DOSE CUP PO PRN (14:21)
[2020-11-10] MEDS ORDERED: IBUPROFEN 400 MG TABLET (FP) PO PRN (14:21)
[2020-11-10] MEDS ORDERED: LORazepam 1 MG TABLET PO PRN (14:21)
[2020-11-10] MEDS ORDERED: METHOCARBAMOL 500 MG TABLET PO PRN (14:21)
[2020-11-10] MEDS ORDERED: ONDANSETRON *ODT* 4 MG TABLET SL PRN (14:21)
[2020-11-10] MEDS ORDERED: ACETAMINOPHEN 325 MG TABLET (FP) PO PRN ×2 (14:21)
[2020-11-10 14:42] VITALS: BMI 20.2
[2020-11-10] MEDS: PRENATAL VITAMINS W/ FOLIC ACID TABLET (FP) PO SCH (16:05)
[2020-11-10 18:05] LABS: HEMOGLOBIN 13.7 GM/dL (11.7-16.9); MCH 29.9 pg (25.7-33.7); MCHC 33.5 g/dl (32.0-35.9); MEAN CELL VOLUME 89.3 fl (80-96); MEAN PLT VOLUME 6.8 fl (7.5-11.1); PLATELET COUNT 286 10^3/uL (134-434); RBC 4.59 M/mm3 (4.00-5.60); RDW 14.4 % (11.9-15.9); WHITE BLOOD COUNT 4.6 K/mm3 (4.0-10.0)
[2020-11-10 18:08] LABS: CALCIUM 9.1 mg/dL (8.5-10.1)
[2020-11-10 18:09] LABS: ALBUMIN 3.7 g/dl (3.4-5.0); BLOOD UREA NITROGEN 13.2 mg/dL (7-18)
[2020-11-10 18:12] LABS: CREATININE 0.7 mg/dL (0.55-1.3)
[2020-11-10 18:14] LABS: TOT PROT 7.8 g/dl (6.4-8.2)
[2020-11-10] MEDS: LORazepam 2 MG TABLET PO SCH ×2 (18:23→23:08)
[2020-11-10] MEDS: hydrOXYzine PAMOATE 25 MG CAPSULE (FP) PO SCH ×2 (18:24→23:07)
[2020-11-10] MEDS: THIAMINE HCL 100 MG TABLET (FP) PO SCH (23:07)
[2020-11-10] MEDS: MELATONIN 5 MG TABLETS PO SCH (23:07)
[2020-11-11] MEDS: hydrOXYzine PAMOATE 25 MG CAPSULE (FP) PO SCH ×5 (06:02→23:05)
[2020-11-11] MEDS: LORazepam 2 MG TABLET PO SCH ×4 (06:02→23:05)
[2020-11-11] MEDS ORDERED: ALBUTEROL SO4 HFA INHALER IH PRN (08:53)
[2020-11-11] MEDS: PRENATAL VITAMINS W/ FOLIC ACID TABLET (FP) PO SCH (10:15)
[2020-11-11] MEDS ORDERED: FLU VACC QS2021-22(6MOS UP)/PF 60 MCG/0.5 ML SYRINGE IM ONE (12:00)
[2020-11-11] MEDS: MELATONIN 5 MG TABLETS PO SCH (23:04)
[2020-11-11] MEDS: THIAMINE HCL 100 MG TABLET (FP) PO SCH (23:06)
[2020-11-12] MEDS ORDERED: LORazepam 1 MG TABLET PO SCH (05:00)
[2020-11-12] MEDS: hydrOXYzine PAMOATE 25 MG CAPSULE (FP) PO SCH (06:38)
[2020-11-12 06:43] VITALS: PULSE 74
[2020-11-12 09:17] VITALS: BP 131/89; TEMP 97.1
[2020-11-12 11:02] LABS: CALCIUM 9.1 mg/dL (8.5-10.1)
[2020-11-12 11:03] LABS: BLOOD UREA NITROGEN 11.5 mg/dL (7-18)
[2020-11-12 11:06] LABS: CREATININE 0.7 mg/dL (0.55-1.3)
[2020-11-13] MEDS ORDERED: LORazepam 0.5 MG TABLET PO PRN
[2020-11-13] MEDS ORDERED: LORazepam 0.5 MG TABLET PO SCH (05:00)
[2020-11-14] MEDS ORDERED: LORazepam 0.5 MG TABLET PO ONE (05:00)
== END 2020-11-12 10:28 | disposition left against medical advice (07) | DRG 770 ==
LOC: YASAS 13:05 → Y3N 15:37
PROVIDERS: ADMIT Allergy & Immunology; ATTEND Allergy & Immunology
PROC: HZ2ZZZZ Detoxification Services for Substance Abuse Treatment (ICD-10-PCS; principal; 2020-11-10)
DX: F10.230 Alcohol dependence with withdrawal, uncomplicated (principal); F14.20 Cocaine dependence, uncomplicated; F12.20 Cannabis dependence, uncomplicated; F17.210 Nicotine dependence, cigarettes, uncomplicated; F20.9 Schizophrenia, unspecified; J45.909 Unspecified asthma, uncomplicated; M19.90 Unspecified osteoarthritis, unspecified site; H54.61 Unqualified visual loss, right eye, normal vision left eye; Z18.89 Other specified retained foreign body fragments; Z99.89 Dependence on other enabling machines and devices; Z88.8 Allergy status to other drugs, medicaments and biological substances; Z59.00 Homelessness unspecified
CPT/HCPCS: 36415; 80048; 80053; 85027; 86780; C9803; U0003; U0005

== ENCOUNTER 2021-03-23 17:53 | Inpatient (IN) | payer OTHER ==
[2021-03-23 19:06] VITALS: BMI 20.1
[2021-03-23] MEDS ORDERED: ONDANSETRON *ODT* 4 MG TABLET SL PRN (20:32)
[2021-03-23] MEDS ORDERED: guaiFENesin 200 MG/10 ML 10 ML UNIT-DOSE CUPS PO PRN (20:32)
[2021-03-23] MEDS ORDERED: ACETAMINOPHEN 325 MG TABLET (FP) PO PRN ×2 (20:32)
[2021-03-23] MEDS ORDERED: DICYCLOMINE HCL 10 MG CAPSULE PO PRN (20:32)
[2021-03-23] MEDS ORDERED: IBUPROFEN 400 MG TABLET (FP) PO PRN (20:32)
[2021-03-23] MEDS ORDERED: MAGNESIUM HYDROX 2400MG/30ML ORAL SUSPENSION 30 ML CUP PO PRN (20:32)
[2021-03-23] MEDS ORDERED: BISMUTH SUBSALICYLATE 524 MG/30 ML PO PRN (20:32)
[2021-03-23] MEDS ORDERED: MAGNESIUM CITRATE 300 ML BOTTLE PO PRN (20:32)
[2021-03-23] MEDS ORDERED: MENTHOL/PHENOL 1 EACH UD MM PRN (20:32)
[2021-03-23] MEDS ORDERED: LOPERAMIDE HCL 2 MG CAPSULE PO PRN (20:32)
[2021-03-23] MEDS ORDERED: P-EPHED 60MG/TRIPROLIDI 2.5MG TABLET PO PRN (20:32)
[2021-03-23] MEDS ORDERED: NICOTINE POLACRILEX 2 MG GUM BUC PRN (20:32)
[2021-03-23] MEDS ORDERED: MAG HYDROX/AL HYDROX/SIMETH 30 ML UNIT-DOSE CUP PO PRN (20:32)
[2021-03-23] MEDS ORDERED: hydrOXYzine PAMOATE 25 MG CAPSULE (FP) PO PRN (20:32)
[2021-03-23] MEDS ORDERED: METHOCARBAMOL 500 MG TABLET PO PRN (20:32)
[2021-03-24] MEDS: MELATONIN 5 MG TABLETS PO SCH ×2 (01:37→22:27)
[2021-03-24] MEDS: THIAMINE HCL 100 MG TABLET (FP) PO SCH ×2 (01:37→22:27)
[2021-03-24] MEDS: NICOTINE 21 MG/24 HOURS TOPICAL PATCH TD SCH (10:31)
[2021-03-24] MEDS: PRENATAL VITAMINS W/ FOLIC ACID TABLET (FP) PO SCH (10:31)
[2021-03-24 11:01] LABS: HEMATOCRIT 38.5 % (35.4-49); HEMOGLOBIN 12.7 GM/dL (11.7-16.9); MCH 29.7 pg (25.7-33.7); MEAN CELL VOLUME 89.8 fl (80-96); MEAN PLT VOLUME 7.5 fl (7.5-11.1); PLATELET COUNT 245 10^3/uL (134-434); RBC 4.29 M/mm3 (4.00-5.60); RDW 14.7 % (11.9-15.9); WHITE BLOOD COUNT 4.3 K/mm3 (4.0-10.0)
[2021-03-24 14:27] LABS: BILIRUBIN,TOTAL 0.7 mg/dL (0.2-1); CALCIUM 8.6 mg/dL (8.5-10.1); CREATININE 0.8 mg/dL (0.55-1.3); TOT PROT 6.3 g/dl (6.4-8.2)
[2021-03-24] MEDS: risperiDONE 0.5 MG TABLET PO SCH (22:27)
[2021-03-25] MEDS: PRENATAL VITAMINS W/ FOLIC ACID TABLET (FP) PO SCH (10:42)
[2021-03-25] MEDS: risperiDONE 0.5 MG TABLET PO SCH (10:42)
[2021-03-25] MEDS: NICOTINE 21 MG/24 HOURS TOPICAL PATCH TD SCH (10:43)
[2021-03-25 12:55] VITALS: BP 127/67; PULSE 87; TEMP 97.7
[2021-03-25 14:07] LABS: SARS-CoV-2 NAA Not Detected (Not Detected)
== END 2021-03-25 14:22 | disposition home or self-care (01) | DRG 774 ==
LOC: YASAS 17:53 → Y6N 03-24 00:46
PROVIDERS: ADMIT Allergy & Immunology; ATTEND Allergy & Immunology
PROC: HZ2ZZZZ Detoxification Services for Substance Abuse Treatment (ICD-10-PCS; principal; 2021-03-24)
DX: F10.230 Alcohol dependence with withdrawal, uncomplicated (principal); F14.20 Cocaine dependence, uncomplicated; F12.20 Cannabis dependence, uncomplicated; F17.210 Nicotine dependence, cigarettes, uncomplicated; F25.9 Schizoaffective disorder, unspecified; F19.282 Other psychoactive substance dependence with psychoactive substance-induced sleep disorder; F19.24 Other psychoactive substance dependence with psychoactive substance-induced mood disorder; J45.909 Unspecified asthma, uncomplicated; M19.90 Unspecified osteoarthritis, unspecified site; Z99.89 Dependence on other enabling machines and devices; Z88.8 Allergy status to other drugs, medicaments and biological substances
CPT/HCPCS: 36415; 80053; 85027; 86780; C9803; U0003; U0005

== ENCOUNTER 2021-07-09 18:27 | Inpatient (IN) | payer OTHER ==
[2021-07-09 19:53] VITALS: BMI 20.5
[2021-07-09] MEDS ORDERED: IBUPROFEN 400 MG TABLET (FP) PO PRN (22:43)
[2021-07-09] MEDS ORDERED: LOPERAMIDE HCL 2 MG CAPSULE PO PRN (22:43)
[2021-07-09] MEDS ORDERED: DICYCLOMINE HCL 10 MG CAPSULE PO PRN (22:43)
[2021-07-09] MEDS ORDERED: MAG HYDROX/AL HYDROX/SIMETH 30 ML UNIT-DOSE CUP PO PRN (22:43)
[2021-07-09] MEDS ORDERED: ONDANSETRON *ODT* 4 MG TABLET SL PRN (22:43)
[2021-07-09] MEDS ORDERED: ACETAMINOPHEN 325 MG TABLET (FP) PO PRN ×2 (22:43)
[2021-07-09] MEDS ORDERED: BENZOCAINE/MENTHOL (CHLORASEPTIC ) LOZENGE MM PRN (22:43)
[2021-07-09] MEDS ORDERED: BISMUTH SUBSALICYLATE 524 MG/30 ML PO PRN (22:43)
[2021-07-09] MEDS ORDERED: MAGNESIUM CITRATE 300 ML BOTTLE PO PRN (22:43)
[2021-07-09] MEDS ORDERED: MAGNESIUM HYDROX 2400MG/30ML ORAL SUSPENSION 30 ML CUP PO PRN (22:43)
[2021-07-09] MEDS ORDERED: NICOTINE 10 MG CARTRIDGE (INHALER) IH PRN (22:43)
[2021-07-10] MEDS: METHOCARBAMOL 500 MG TABLET PO PRN (01:11)
[2021-07-10] MEDS: IBUPROFEN 600 MG TABLET (FP) PO PRN ×3 (01:11→18:01)
[2021-07-10] MEDS: hydrOXYzine PAMOATE 25 MG CAPSULE (FP) PO SCH ×5 (07:02→23:16)
[2021-07-10] MEDS: PRENATAL VITAMINS W/ FOLIC ACID TABLET (FP) PO SCH (09:50)
[2021-07-10] MEDS: NICOTINE 21 MG/24 HOURS TOPICAL PATCH TD SCH (09:51)
[2021-07-10 10:34] LABS: HEMATOCRIT 39.2 % (35.4-49); HEMOGLOBIN 12.9 GM/dL (11.7-16.9); MCH 29.4 pg (25.7-33.7); MCHC 32.9 g/dl (32.0-35.9); MEAN CELL VOLUME 89.4 fl (80-96); MEAN PLT VOLUME 7.4 fl (7.5-11.1); PLATELET COUNT 288 10^3/uL (134-434); RBC 4.38 M/mm3 (4.00-5.60); WHITE BLOOD COUNT 3.8 K/mm3 (4.0-10.0)
[2021-07-10 11:00] LABS: ALBUMIN 3.3 g/dl (3.4-5.0); CALCIUM 8.8 mg/dL (8.5-10.1)
[2021-07-10 11:01] LABS: BLOOD UREA NITROGEN 15.4 mg/dL (7-18)
[2021-07-10 11:02] LABS: CREATININE 0.7 mg/dL (0.55-1.3)
[2021-07-10 11:04] LABS: BILIRUBIN,TOTAL 0.6 mg/dL (0.2-1); TOT PROT 6.8 g/dl (6.4-8.2)
[2021-07-10] MEDS: THIAMINE HCL 100 MG TABLET (FP) PO SCH (23:16)
[2021-07-10] MEDS: MELATONIN 5 MG TABLETS PO SCH (23:16)
[2021-07-11] MEDS: hydrOXYzine PAMOATE 25 MG CAPSULE (FP) PO SCH ×5 (06:50→22:12)
[2021-07-11] MEDS: PRENATAL VITAMINS W/ FOLIC ACID TABLET (FP) PO SCH (10:17)
[2021-07-11] MEDS: IBUPROFEN 600 MG TABLET (FP) PO PRN (10:17)
[2021-07-11] MEDS: NICOTINE 21 MG/24 HOURS TOPICAL PATCH TD SCH (11:08)
[2021-07-11] MEDS: MELATONIN 5 MG TABLETS PO SCH (22:12)
[2021-07-11] MEDS: THIAMINE HCL 100 MG TABLET (FP) PO SCH (22:12)
[2021-07-12] MEDS: METHOCARBAMOL 500 MG TABLET PO PRN (05:59)
[2021-07-12] MEDS: IBUPROFEN 600 MG TABLET (FP) PO PRN (05:59)
[2021-07-12] MEDS: hydrOXYzine PAMOATE 25 MG CAPSULE (FP) PO SCH ×3 (06:01→13:58)
[2021-07-12 09:16] VITALS: TEMP 97.1
[2021-07-12] MEDS: NICOTINE 21 MG/24 HOURS TOPICAL PATCH TD SCH (10:40)
[2021-07-12] MEDS: PRENATAL VITAMINS W/ FOLIC ACID TABLET (FP) PO SCH (10:40)
[2021-07-12 12:42] VITALS: BP 135/89; PULSE 74
[2021-07-12] MEDS ORDERED: QUEtiapine FUMARATE 50 MG TABLET PO SCH (22:00)
== END 2021-07-12 14:05 | disposition other institution (70) | DRG 774 ==
LOC: YASAS 18:27 → UNDOADMIN 23:34 → Y3N 23:34
PROVIDERS: ADMIT Allergy & Immunology; ATTEND Surgery
PROC: HZ2ZZZZ Detoxification Services for Substance Abuse Treatment (ICD-10-PCS; principal; 2021-07-09)
DX: F10.230 Alcohol dependence with withdrawal, uncomplicated (principal); F14.20 Cocaine dependence, uncomplicated; F12.20 Cannabis dependence, uncomplicated; F17.210 Nicotine dependence, cigarettes, uncomplicated; F20.9 Schizophrenia, unspecified; J45.20 Mild intermittent asthma, uncomplicated; H54.61 Unqualified visual loss, right eye, normal vision left eye; M19.90 Unspecified osteoarthritis, unspecified site; Z18.89 Other specified retained foreign body fragments; Z88.8 Allergy status to other drugs, medicaments and biological substances; Z91.013 Allergy to seafood; Z91.19 Patient's noncompliance with other medical treatment and regimen; Z56.0 Unemployment, unspecified
CPT/HCPCS: 36415; 80053; 85027; 86780; C9803-CS; U0003; U0005

== ENCOUNTER 2021-08-05 16:25 | Inpatient (IN) | payer OTHER ==
[2021-08-05 17:33] VITALS: BMI 19.3
[2021-08-05] MEDS ORDERED: NICOTINE POLACRILEX 2 MG GUM BUC PRN (18:23)
[2021-08-05] MEDS ORDERED: MAGNESIUM CITRATE 300 ML BOTTLE PO PRN (18:23)
[2021-08-05] MEDS ORDERED: MAG HYDROX/AL HYDROX/SIMETH 30 ML UNIT-DOSE CUP PO PRN (18:23)
[2021-08-05] MEDS ORDERED: IBUPROFEN 600 MG TABLET (FP) PO PRN (18:23)
[2021-08-05] MEDS ORDERED: IBUPROFEN 400 MG TABLET (FP) PO PRN (18:23)
[2021-08-05] MEDS ORDERED: LOPERAMIDE HCL 2 MG CAPSULE PO PRN (18:23)
[2021-08-05] MEDS ORDERED: METHOCARBAMOL 500 MG TABLET PO PRN (18:23)
[2021-08-05] MEDS ORDERED: BISMUTH SUBSALICYLATE 524 MG/30 ML PO PRN (18:23)
[2021-08-05] MEDS ORDERED: NICOTINE 10 MG CARTRIDGE (INHALER) IH PRN (18:23)
[2021-08-05] MEDS ORDERED: DICYCLOMINE HCL 10 MG CAPSULE PO PRN (18:23)
[2021-08-05] MEDS ORDERED: ACETAMINOPHEN 325 MG TABLET (FP) PO PRN ×2 (18:23)
[2021-08-05] MEDS ORDERED: guaiFENesin 200 MG/10 ML 10 ML UNIT-DOSE CUPS PO PRN (18:23)
[2021-08-05] MEDS ORDERED: ONDANSETRON *ODT* 4 MG TABLET SL PRN (18:23)
[2021-08-05] MEDS ORDERED: BENZOCAINE/MENTHOL (CHLORASEPTIC ) LOZENGE MM PRN (18:23)
[2021-08-05] MEDS ORDERED: hydrOXYzine PAMOATE 25 MG CAPSULE (FP) PO PRN (18:23)
[2021-08-05] MEDS ORDERED: P-EPHED 60MG/TRIPROLIDI 2.5MG TABLET PO PRN (18:23)
[2021-08-05] MEDS ORDERED: MAGNESIUM HYDROX 2400MG/30ML ORAL SUSPENSION 30 ML CUP PO PRN (18:23)
[2021-08-05] MEDS ORDERED: diazePAM 5 MG TABLET PO PRN (18:25)
[2021-08-05] MEDS ORDERED: IBUPROFEN 400 MG TABLET (FP) PO ONE (22:46)
[2021-08-05] MEDS: THIAMINE HCL 100 MG TABLET (FP) PO SCH (22:51)
[2021-08-05] MEDS: MELATONIN 5 MG TABLETS PO SCH (22:51)
[2021-08-06] MEDS: PRENATAL VITAMINS W/ FOLIC ACID TABLET (FP) PO SCH (10:32)
[2021-08-06 11:59] LABS: EOS % 3.6 % (0-4.5); HEMATOCRIT 38.7 % (35.4-49); HEMOGLOBIN 12.8 GM/dL (11.7-16.9); LYMPH % 40.2 % (8-40); MCH 29.6 pg (25.7-33.7); MCHC 33.2 g/dl (32.0-35.9); MEAN CELL VOLUME 89.2 fl (80-96); MEAN PLT VOLUME 7.5 fl (7.5-11.1); MONO % 11.6 % (3.8-10.2); NEUT % 43.6 % (42.8-82.8); PLATELET COUNT 280 10^3/uL (134-434); RBC 4.34 M/mm3 (4.00-5.60); RDW 14.1 % (11.9-15.9); WHITE BLOOD COUNT 4.7 K/mm3 (4.0-10.0)
[2021-08-06 12:05] LABS: CALCIUM 8.9 mg/dL (8.5-10.1)
[2021-08-06 12:06] LABS: ALBUMIN 3.4 g/dl (3.4-5.0); BLOOD UREA NITROGEN 15.9 mg/dL (7-18)
[2021-08-06 12:09] LABS: CREATININE 0.7 mg/dL (0.55-1.3)
[2021-08-06 12:10] LABS: BILIRUBIN,TOTAL 1.5 mg/dL (0.2-1); TOT PROT 6.9 g/dl (6.4-8.2)
[2021-08-06] MEDS: THIAMINE HCL 100 MG TABLET (FP) PO SCH (22:35)
[2021-08-06] MEDS: MELATONIN 5 MG TABLETS PO SCH (22:35)
[2021-08-07] MEDS: PRENATAL VITAMINS W/ FOLIC ACID TABLET (FP) PO SCH (10:03)
[2021-08-07 12:58] VITALS: BP 135/71; PULSE 76; TEMP 98.2
== END 2021-08-07 14:37 | disposition home or self-care (01) | DRG 774 ==
LOC: YASAS 16:25 → Y6N 08-06 07:15
PROVIDERS: ADMIT Allergy & Immunology; ATTEND Surgery
PROC: HZ2ZZZZ Detoxification Services for Substance Abuse Treatment (ICD-10-PCS; principal; 2021-08-06)
DX: F10.230 Alcohol dependence with withdrawal, uncomplicated (principal); F14.20 Cocaine dependence, uncomplicated; F12.20 Cannabis dependence, uncomplicated; F17.210 Nicotine dependence, cigarettes, uncomplicated; J45.909 Unspecified asthma, uncomplicated; H54.40 Blindness, one eye, unspecified eye; Z88.8 Allergy status to other drugs, medicaments and biological substances; Z91.013 Allergy to seafood; Z87.828 Personal history of other (healed) physical injury and trauma
CPT/HCPCS: 36415; 80053; 85025; 86780; 87811; C9803-CS; U0003; U0005

== ENCOUNTER 2021-09-27 16:06 | Inpatient (IN) | payer OTHER ==
[2021-09-27 18:00] VITALS: BMI 20.1
[2021-09-27] MEDS ORDERED: chlordiazePOXIDE HCL 25 MG CAPSULE PO PRN (19:43)
[2021-09-27] MEDS ORDERED: IBUPROFEN 600 MG TABLET (FP) PO PRN (19:43)
[2021-09-27] MEDS ORDERED: BENZOCAINE/MENTHOL (CHLORASEPTIC ) LOZENGE MM PRN (19:43)
[2021-09-27] MEDS ORDERED: NICOTINE 10 MG CARTRIDGE (INHALER) IH PRN (19:43)
[2021-09-27] MEDS ORDERED: LOPERAMIDE HCL 2 MG CAPSULE PO PRN (19:43)
[2021-09-27] MEDS ORDERED: MAGNESIUM HYDROX 2400MG/30ML ORAL SUSPENSION 30 ML CUP PO PRN (19:43)
[2021-09-27] MEDS ORDERED: MAG HYDROX/AL HYDROX/SIMETH 30 ML UNIT-DOSE CUP PO PRN (19:43)
[2021-09-27] MEDS ORDERED: DICYCLOMINE HCL 10 MG CAPSULE PO PRN (19:43)
[2021-09-27] MEDS ORDERED: ONDANSETRON *ODT* 4 MG TABLET SL PRN (19:43)
[2021-09-27] MEDS ORDERED: BISMUTH SUBSALICYLATE 524 MG/30 ML PO PRN (19:43)
[2021-09-27] MEDS ORDERED: MAGNESIUM CITRATE 300 ML BOTTLE PO PRN (19:43)
[2021-09-27] MEDS ORDERED: ACETAMINOPHEN 325 MG TABLET (FP) PO PRN ×2 (19:43)
[2021-09-27] MEDS ORDERED: IBUPROFEN 400 MG TABLET (FP) PO PRN (19:43)
[2021-09-27] MEDS: MELATONIN 5 MG TABLETS PO SCH (22:27)
[2021-09-27] MEDS: THIAMINE HCL 100 MG TABLET (FP) PO SCH (22:28)
[2021-09-27] MEDS: hydrOXYzine PAMOATE 25 MG CAPSULE (FP) PO SCH (22:28)
[2021-09-27] MEDS: METHOCARBAMOL 500 MG TABLET PO PRN (22:28)
[2021-09-27] MEDS: chlordiazePOXIDE HCL 25 MG CAPSULE PO SCH (22:28)
[2021-09-27] MEDS: PRENATAL VITAMINS W/ FOLIC ACID TABLET (FP) PO SCH (22:32)
[2021-09-28] MEDS: chlordiazePOXIDE HCL 25 MG CAPSULE PO SCH ×4 (06:28→22:44)
[2021-09-28] MEDS: hydrOXYzine PAMOATE 25 MG CAPSULE (FP) PO SCH ×5 (06:29→22:42)
[2021-09-28] MEDS: METHOCARBAMOL 500 MG TABLET PO PRN ×2 (06:33→11:03)
[2021-09-28] MEDS ORDERED: ALBUTEROL SO4 HFA INHALER IH PRN (10:46)
[2021-09-28] MEDS ORDERED: cloNIDine HCL 0.1 MG TABLET PO PRN (10:50)
[2021-09-28 11:02] LABS: HEMATOCRIT 40.5 % (35.4-49); HEMOGLOBIN 13.1 GM/dL (11.7-16.9); MCH 29.4 pg (25.7-33.7); MCHC 32.3 g/dl (32.0-35.9); MEAN CELL VOLUME 91.1 fl (80-96); MEAN PLT VOLUME 7.6 fl (7.5-11.1); PLATELET COUNT 228 10^3/uL (134-434); RBC 4.44 M/mm3 (4.00-5.60); RDW 14.2 % (11.9-15.9); WHITE BLOOD COUNT 4.5 K/mm3 (4.0-10.0)
[2021-09-28] MEDS: PRENATAL VITAMINS W/ FOLIC ACID TABLET (FP) PO SCH (11:03)
[2021-09-28 11:10] LABS: BLOOD UREA NITROGEN 12.4 mg/dL (7-18); CALCIUM 8.5 mg/dL (8.5-10.1)
[2021-09-28 11:13] LABS: ALBUMIN 3.1 g/dl (3.4-5.0); CREATININE 0.8 mg/dL (0.55-1.3)
[2021-09-28 11:15] LABS: BILIRUBIN,TOTAL 0.9 mg/dL (0.2-1); TOT PROT 6.5 g/dl (6.4-8.2)
[2021-09-28] MEDS ORDERED: ACETAMINOPHEN 325 MG TABLET (FP) PO ONE (11:30)
[2021-09-28] MEDS: THIAMINE HCL 100 MG TABLET (FP) PO SCH (22:42)
[2021-09-28] MEDS: MELATONIN 5 MG TABLETS PO SCH (22:42)
[2021-09-29] MEDS ORDERED: chlordiazePOXIDE HCL 25 MG CAPSULE PO SCH (05:00)
[2021-09-29] MEDS: hydrOXYzine PAMOATE 25 MG CAPSULE (FP) PO SCH ×3 (06:41→13:25)
[2021-09-29] MEDS: PRENATAL VITAMINS W/ FOLIC ACID TABLET (FP) PO SCH (11:21)
[2021-09-29] MEDS: METHOCARBAMOL 500 MG TABLET PO PRN (11:21)
[2021-09-29 12:52] VITALS: BP 140/84; PULSE 76; RESP 17; TEMP 96.9
[2021-09-29] MEDS ORDERED: chlordiazePOXIDE HCL 10 MG CAPSULE PO SCH (17:00)
[2021-09-30] MEDS ORDERED: chlordiazePOXIDE HCL 10 MG CAPSULE PO PRN
[2021-09-30] MEDS ORDERED: chlordiazePOXIDE HCL 10 MG CAPSULE PO SCH (05:00)
[2021-10-01] MEDS ORDERED: chlordiazePOXIDE HCL 10 MG CAPSULE PO SCH (05:00)
[2021-10-02] MEDS ORDERED: chlordiazePOXIDE HCL 10 MG CAPSULE PO ONE (05:00)
== END 2021-09-29 16:05 | disposition left against medical advice (07) | DRG 770 ==
LOC: YASAS 16:06 → Y6N 19:52
PROVIDERS: ADMIT Allergy & Immunology; ATTEND Surgery
PROC: HZ2ZZZZ Detoxification Services for Substance Abuse Treatment (ICD-10-PCS; principal; 2021-09-27)
PROC: HZ2ZZZZ Detoxification Services for Substance Abuse Treatment (ICD-10-PCS; 2021-09-27)
DX: F10.230 Alcohol dependence with withdrawal, uncomplicated (principal); F14.20 Cocaine dependence, uncomplicated; F12.20 Cannabis dependence, uncomplicated; F17.210 Nicotine dependence, cigarettes, uncomplicated; F20.9 Schizophrenia, unspecified; J45.20 Mild intermittent asthma, uncomplicated; H54.61 Unqualified visual loss, right eye, normal vision left eye; M25.552 Pain in left hip; Z99.89 Dependence on other enabling machines and devices; Z88.8 Allergy status to other drugs, medicaments and biological substances; Z91.013 Allergy to seafood
CPT/HCPCS: 36415; 80053; 85027; 86780; C9803-CS; J0735; U0003; U0005

== ENCOUNTER 2022-02-25 10:36 | Inpatient (IN) | payer OTHER ==
[2022-02-25 11:01] VITALS: BMI 20.7
[2022-02-25] MEDS ORDERED: BISMUTH SUBSALICYLATE 262 MG/15 ML BTL PO PRN (11:22)
[2022-02-25] MEDS ORDERED: IBUPROFEN 400 MG TABLET (FP) PO PRN (11:22)
[2022-02-25] MEDS ORDERED: DICYCLOMINE HCL 10 MG CAPSULE PO PRN (11:22)
[2022-02-25] MEDS ORDERED: hydrOXYzine PAMOATE 25 MG CAPSULE (FP) PO PRN (11:22)
[2022-02-25] MEDS ORDERED: NALOXONE HCL (KLOXXADO) 8 MG SPRAY NS PRN (11:22)
[2022-02-25] MEDS ORDERED: LOPERAMIDE HCL 2 MG CAPSULE PO PRN (11:22)
[2022-02-25] MEDS ORDERED: BENZOCAINE/MENTHOL (CHLORASEPTIC ) LOZENGE MM PRN (11:22)
[2022-02-25] MEDS ORDERED: MAG HYDROX/AL HYDROX/SIMETH 30 ML UNIT-DOSE CUP PO PRN (11:22)
[2022-02-25] MEDS ORDERED: IBUPROFEN 600 MG TABLET (FP) PO PRN (11:22)
[2022-02-25] MEDS ORDERED: POLYETHYLENE GLYCOL (HEALTHYLAX) 3350 17 GM PACKET PO PRN (11:22)
[2022-02-25] MEDS ORDERED: ACETAMINOPHEN 325 MG TABLET (FP) PO PRN ×2 (11:22)
[2022-02-25] MEDS ORDERED: ONDANSETRON *ODT* 4 MG TABLET SL PRN (11:22)
[2022-02-25] MEDS ORDERED: MAGNESIUM HYDROX 2400MG/30ML ORAL SUSPENSION 30 ML CUP PO PRN (11:22)
[2022-02-25] MEDS ORDERED: LORazepam 1 MG TABLET PO PRN (11:22)
[2022-02-25] MEDS ORDERED: ALBUTEROL SO4 HFA INHALER IH PRN (11:26)
[2022-02-25] MEDS: NICOTINE 14 MG/24 HOURS TOPICAL PATCH TD SCH (13:45)
[2022-02-25] MEDS: PRENATAL VITAMINS W/ FOLIC ACID TABLET (FP) PO SCH (13:46)
[2022-02-25] MEDS: METHOCARBAMOL 500 MG TABLET PO PRN (13:46)
[2022-02-25 17:20] LABS: ALBUMIN 3.6 g/dl (3.4-5.0)
[2022-02-25 17:21] LABS: BLOOD UREA NITROGEN 11.1 mg/dL (7-18); HEMOGLOBIN 13.3 GM/dL (11.7-16.9); MCH 29.3 pg (25.7-33.7); MCHC 32.5 g/dl (32.0-35.9); MEAN CELL VOLUME 90.1 fl (80-96); MEAN PLT VOLUME 7.3 fl (7.5-11.1); PLATELET COUNT 311 10^3/uL (134-434); RBC 4.55 M/mm3 (4.00-5.60); WHITE BLOOD COUNT 3.9 K/mm3 (4.0-10.0)
[2022-02-25 17:24] LABS: CREATININE 0.8 mg/dL (0.55-1.3)
[2022-02-25 17:25] LABS: BILIRUBIN,TOTAL 0.8 mg/dL (0.2-1); TOT PROT 7.2 g/dl (6.4-8.2)
[2022-02-25] MEDS: LORazepam 2 MG TABLET PO SCH ×2 (17:32→22:29)
[2022-02-25] MEDS: MELATONIN 5 MG TABLETS PO SCH (22:29)
[2022-02-25] MEDS: THIAMINE HCL 100 MG TABLET (FP) PO SCH (22:29)
[2022-02-25] MEDS: NICOTINE 10 MG CARTRIDGE (INHALER) IH PRN (22:30)
[2022-02-26] MEDS: LORazepam 2 MG TABLET PO SCH ×4 (05:41→22:19)
[2022-02-26] MEDS: NICOTINE 14 MG/24 HOURS TOPICAL PATCH TD SCH (10:59)
[2022-02-26] MEDS: PRENATAL VITAMINS W/ FOLIC ACID TABLET (FP) PO SCH (10:59)
[2022-02-26] MEDS: NICOTINE 10 MG CARTRIDGE (INHALER) IH PRN (22:19)
[2022-02-26] MEDS: MELATONIN 5 MG TABLETS PO SCH (22:19)
[2022-02-26] MEDS: THIAMINE HCL 100 MG TABLET (FP) PO SCH (22:19)
[2022-02-27] MEDS: LORazepam 1 MG TABLET PO SCH ×4 (05:44→22:29)
[2022-02-27] MEDS: PRENATAL VITAMINS W/ FOLIC ACID TABLET (FP) PO SCH (10:24)
[2022-02-27] MEDS: NICOTINE 14 MG/24 HOURS TOPICAL PATCH TD SCH (10:24)
[2022-02-27] MEDS: THIAMINE HCL 100 MG TABLET (FP) PO SCH (22:29)
[2022-02-27] MEDS: MELATONIN 5 MG TABLETS PO SCH (22:29)
[2022-02-28] MEDS ORDERED: LORazepam 0.5 MG TABLET PO PRN
[2022-02-28] MEDS: METHOCARBAMOL 500 MG TABLET PO PRN (05:19)
[2022-02-28] MEDS: LORazepam 0.5 MG TABLET PO SCH ×2 (05:19→11:13)
[2022-02-28 06:58] VITALS: RESP 16
[2022-02-28 09:20] VITALS: BP 133/81; PULSE 91; TEMP 96.8
[2022-02-28] MEDS: NICOTINE 14 MG/24 HOURS TOPICAL PATCH TD SCH (11:12)
[2022-02-28] MEDS: PRENATAL VITAMINS W/ FOLIC ACID TABLET (FP) PO SCH (11:12)
[2022-03-01] MEDS ORDERED: LORazepam 0.5 MG TABLET PO ONE (05:00)
== END 2022-02-28 10:02 | disposition other institution (70) | DRG 774 ==
LOC: YASAS 10:36 → Y3N 12:01
PROVIDERS: ADMIT Allergy & Immunology; ATTEND Family Medicine
PROC: HZ2ZZZZ Detoxification Services for Substance Abuse Treatment (ICD-10-PCS; principal; 2022-02-25)
DX: F10.230 Alcohol dependence with withdrawal, uncomplicated (principal); F14.20 Cocaine dependence, uncomplicated; F12.20 Cannabis dependence, uncomplicated; F17.213 Nicotine dependence, cigarettes, with withdrawal; F25.9 Schizoaffective disorder, unspecified; F41.9 Anxiety disorder, unspecified; F32.A Depression, unspecified; H54.61 Unqualified visual loss, right eye, normal vision left eye; J45.20 Mild intermittent asthma, uncomplicated; Z18.89 Other specified retained foreign body fragments; Z99.89 Dependence on other enabling machines and devices; Z88.8 Allergy status to other drugs, medicaments and biological substances
CPT/HCPCS: 36415; 80053; 82140; 85027; 86780; 87811; C9803-CS; U0003; U0005

== ENCOUNTER 2022-03-03 11:57 | Inpatient (IN) | payer OTHER ==
[2022-03-03 13:14] VITALS: BMI 20.1
[2022-03-03] MEDS ORDERED: IBUPROFEN 600 MG TABLET (FP) PO PRN (13:35)
[2022-03-03] MEDS ORDERED: BISMUTH SUBSALICYLATE 524 MG/30 ML PO PRN (13:35)
[2022-03-03] MEDS ORDERED: hydrOXYzine PAMOATE 25 MG CAPSULE (FP) PO PRN (13:35)
[2022-03-03] MEDS ORDERED: LOPERAMIDE HCL 2 MG CAPSULE PO PRN (13:35)
[2022-03-03] MEDS ORDERED: NALOXONE HCL (KLOXXADO) 8 MG SPRAY NS PRN (13:35)
[2022-03-03] MEDS ORDERED: MAG HYDROX/AL HYDROX/SIMETH 30 ML UNIT-DOSE CUP PO PRN (13:35)
[2022-03-03] MEDS ORDERED: LORazepam 1 MG TABLET PO PRN (13:35)
[2022-03-03] MEDS ORDERED: NICOTINE 10 MG CARTRIDGE (INHALER) IH PRN (13:35)
[2022-03-03] MEDS ORDERED: IBUPROFEN 400 MG TABLET (FP) PO PRN (13:35)
[2022-03-03] MEDS ORDERED: ONDANSETRON *ODT* 4 MG TABLET SL PRN (13:35)
[2022-03-03] MEDS ORDERED: DICYCLOMINE HCL 10 MG CAPSULE PO PRN (13:35)
[2022-03-03] MEDS ORDERED: MAGNESIUM HYDROX 2400MG/30ML ORAL SUSPENSION 30 ML CUP PO PRN (13:35)
[2022-03-03] MEDS ORDERED: BENZOCAINE/MENTHOL (CHLORASEPTIC ) LOZENGE MM PRN (13:35)
[2022-03-03] MEDS ORDERED: ACETAMINOPHEN 325 MG TABLET (FP) PO PRN ×2 (13:35)
[2022-03-03] MEDS ORDERED: METHOCARBAMOL 500 MG TABLET PO PRN (13:35)
[2022-03-03] MEDS ORDERED: POLYETHYLENE GLYCOL (HEALTHYLAX) 3350 17 GM PACKET PO PRN (13:35)
[2022-03-03] MEDS ORDERED: ALBUTEROL SO4 HFA INHALER IH PRN (14:14)
[2022-03-03] MEDS ORDERED: LORazepam 2 MG TABLET PO SCH (17:00)
[2022-03-03 17:35] LABS: HEMATOCRIT 40.8 % (35.4-49); HEMOGLOBIN 13.2 GM/dL (11.7-16.9); MCH 29.3 pg (25.7-33.7); MCHC 32.5 g/dl (32.0-35.9); MEAN CELL VOLUME 90.1 fl (80-96); MEAN PLT VOLUME 7.5 fl (7.5-11.1); PLATELET COUNT 299 10^3/uL (134-434); RBC 4.52 M/mm3 (4.00-5.60); RDW 13.7 % (11.9-15.9); WHITE BLOOD COUNT 3.6 K/mm3 (4.0-10.0)
[2022-03-03 18:41] LABS: ALBUMIN 3.4 g/dl (3.4-5.0); CALCIUM 8.6 mg/dL (8.5-10.1)
[2022-03-03 18:43] LABS: BLOOD UREA NITROGEN 17.1 mg/dL (7-18)
[2022-03-03 18:45] LABS: CREATININE 0.8 mg/dL (0.55-1.3)
[2022-03-03 18:47] LABS: BILIRUBIN,TOTAL 0.7 mg/dL (0.2-1); TOT PROT 6.9 g/dl (6.4-8.2)
[2022-03-03] MEDS: THIAMINE HCL 100 MG TABLET (FP) PO SCH (21:07)
[2022-03-03] MEDS: MELATONIN 5 MG TABLETS PO SCH (21:07)
[2022-03-03] MEDS: NICOTINE 14 MG/24 HOURS TOPICAL PATCH TD SCH (21:08)
[2022-03-03] MEDS: PRENATAL VITAMINS W/ FOLIC ACID TABLET (FP) PO SCH (21:08)
[2022-03-03] MEDS ORDERED: TUBERCULIN PPD 5 TU/0.1ML VIAL ID ONE (21:40)
[2022-03-04 07:00] VITALS: RESP 18
[2022-03-04] MEDS: PRENATAL VITAMINS W/ FOLIC ACID TABLET (FP) PO SCH (09:30)
[2022-03-04] MEDS: NICOTINE 14 MG/24 HOURS TOPICAL PATCH TD SCH (09:31)
[2022-03-04] MEDS: THIAMINE HCL 100 MG TABLET (FP) PO SCH (22:08)
[2022-03-04] MEDS: MELATONIN 5 MG TABLETS PO SCH (22:08)
[2022-03-05] MEDS ORDERED: LORazepam 1 MG TABLET PO SCH (05:00)
[2022-03-05] MEDS: PRENATAL VITAMINS W/ FOLIC ACID TABLET (FP) PO SCH (10:24)
[2022-03-05] MEDS: NICOTINE 14 MG/24 HOURS TOPICAL PATCH TD SCH (10:25)
[2022-03-05] MEDS: MELATONIN 5 MG TABLETS PO SCH (21:12)
[2022-03-05] MEDS: THIAMINE HCL 100 MG TABLET (FP) PO SCH (21:12)
[2022-03-06] MEDS ORDERED: LORazepam 0.5 MG TABLET PO PRN
[2022-03-06] MEDS ORDERED: LORazepam 0.5 MG TABLET PO SCH (05:00)
[2022-03-06] MEDS: PRENATAL VITAMINS W/ FOLIC ACID TABLET (FP) PO SCH (10:09)
[2022-03-06] MEDS: NICOTINE 14 MG/24 HOURS TOPICAL PATCH TD SCH (10:09)
[2022-03-06] MEDS: MELATONIN 5 MG TABLETS PO SCH (21:13)
[2022-03-06] MEDS: THIAMINE HCL 100 MG TABLET (FP) PO SCH (21:14)
[2022-03-07] MEDS ORDERED: LORazepam 0.5 MG TABLET PO ONE (05:00)
[2022-03-07 06:44] VITALS: BP 112/63; PULSE 82; TEMP 98.2
[2022-03-07] MEDS: NICOTINE 14 MG/24 HOURS TOPICAL PATCH TD SCH (10:28)
[2022-03-07] MEDS: PRENATAL VITAMINS W/ FOLIC ACID TABLET (FP) PO SCH (10:28)
== END 2022-03-07 11:24 | disposition left against medical advice (07) | DRG 770 ==
LOC: YASAS 11:57 → Y3W 19:28
PROVIDERS: ADMIT Allergy & Immunology; ATTEND Psychiatry & Neurology Pain Medicine
PROC: HZ42ZZZ Group Counseling for Substance Abuse Treatment, Cognitive-Behavioral (ICD-10-PCS; principal; 2022-03-03)
DX: F10.20 Alcohol dependence, uncomplicated (principal); F14.20 Cocaine dependence, uncomplicated; F12.20 Cannabis dependence, uncomplicated; F17.210 Nicotine dependence, cigarettes, uncomplicated; F20.9 Schizophrenia, unspecified; F32.A Depression, unspecified; H54.61 Unqualified visual loss, right eye, normal vision left eye; J45.20 Mild intermittent asthma, uncomplicated; M19.90 Unspecified osteoarthritis, unspecified site; Z18.89 Other specified retained foreign body fragments; Z88.8 Allergy status to other drugs, medicaments and biological substances
CPT/HCPCS: 36415; 80053; 82140; 85027; 86780; 93005; 93010; C9803-CS; U0003; U0005

== ENCOUNTER 2022-04-24 15:34 | Inpatient (IN) | payer OTHER ==
[2022-04-24 20:14] VITALS: BMI 24.3
[2022-04-24] MEDS ORDERED: NALOXONE HCL 0.4 MG/ML VIAL IM PRN (20:28)
[2022-04-24] MEDS ORDERED: ONDANSETRON *ODT* 4 MG TABLET SL PRN (20:28)
[2022-04-24] MEDS ORDERED: MAG HYDROX/AL HYDROX/SIMETH 30 ML UNIT-DOSE CUP PO PRN (20:28)
[2022-04-24] MEDS ORDERED: NALOXONE HCL (KLOXXADO) 8 MG SPRAY NS PRN (20:28)
[2022-04-24] MEDS ORDERED: ACETAMINOPHEN 325 MG TABLET (FP) PO PRN (20:28)
[2022-04-24] MEDS ORDERED: BISMUTH SUBSALICYLATE 524 MG/30 ML PO PRN (20:28)
[2022-04-24] MEDS ORDERED: IBUPROFEN 400 MG TABLET (FP) PO PRN (20:28)
[2022-04-24] MEDS ORDERED: METHOCARBAMOL 500 MG TABLET PO PRN (20:28)
[2022-04-24] MEDS ORDERED: BENZONATATE 200 MG CAPSULE PO PRN (20:28)
[2022-04-24] MEDS ORDERED: NICOTINE POLACRILEX 2 MG GUM BUC PRN (20:28)
[2022-04-24] MEDS ORDERED: MAGNESIUM HYDROX 2400MG/30ML ORAL SUSPENSION 30 ML CUP PO PRN (20:28)
[2022-04-24] MEDS ORDERED: POLYETHYLENE GLYCOL (HEALTHYLAX) 3350 17 GM PACKET PO PRN (20:28)
[2022-04-24] MEDS ORDERED: hydrOXYzine PAMOATE 25 MG CAPSULE (FP) PO PRN (20:28)
[2022-04-24] MEDS ORDERED: LOPERAMIDE HCL 2 MG CAPSULE PO PRN (20:28)
[2022-04-24] MEDS ORDERED: BENZOCAINE/MENTHOL (CHLORASEPTIC ) LOZENGE MM PRN (20:28)
[2022-04-24] MEDS ORDERED: ALBUTEROL SO4 HFA INHALER IH PRN (20:38)
[2022-04-24] MEDS: THIAMINE HCL 100 MG TABLET (FP) PO SCH (23:04)
[2022-04-24] MEDS: MELATONIN 5 MG TABLETS PO SCH (23:04)
[2022-04-24] MEDS: IBUPROFEN 600 MG TABLET (FP) PO PRN (23:05)
[2022-04-25] MEDS ORDERED: chlordiazePOXIDE HCL 25 MG CAPSULE PO PRN (10:26)
[2022-04-25] MEDS: PRENATAL VITAMINS W/ FOLIC ACID TABLET (FP) PO SCH (11:38)
[2022-04-25] MEDS: NICOTINE 21 MG/24 HOURS TOPICAL PATCH TD SCH (11:38)
[2022-04-25] MEDS: chlordiazePOXIDE HCL 25 MG CAPSULE PO SCH ×3 (11:40→22:23)
[2022-04-25 11:57] LABS: HEMATOCRIT 37.1 % (35.4-49); HEMOGLOBIN 12.3 GM/dL (11.7-16.9); MCH 29.3 pg (25.7-33.7); MCHC 33.3 g/dl (32.0-35.9); MEAN CELL VOLUME 88.2 fl (80-96); MEAN PLT VOLUME 7.5 fl (7.5-11.1); PLATELET COUNT 244 10^3/uL (134-434); RBC 4.21 M/mm3 (4.00-5.60); RDW 13.8 % (11.9-15.9); WHITE BLOOD COUNT 4.1 K/mm3 (4.0-10.0)
[2022-04-25 12:31] LABS: CALCIUM 8.5 mg/dL (8.5-10.1)
[2022-04-25 12:33] LABS: BLOOD UREA NITROGEN 12.8 mg/dL (7-18)
[2022-04-25 12:35] LABS: CREATININE 0.7 mg/dL (0.55-1.3)
[2022-04-25 12:36] LABS: BILIRUBIN,TOTAL 0.8 mg/dL (0.2-1)
[2022-04-25] MEDS: MELATONIN 5 MG TABLETS PO SCH (22:24)
[2022-04-25] MEDS: IBUPROFEN 600 MG TABLET (FP) PO PRN (22:24)
[2022-04-25] MEDS: THIAMINE HCL 100 MG TABLET (FP) PO SCH (22:24)
[2022-04-26] MEDS: chlordiazePOXIDE HCL 25 MG CAPSULE PO SCH ×2 (05:50→10:45)
[2022-04-26 06:08] VITALS: TEMP 97.3
[2022-04-26 09:07] VITALS: RESP 18
[2022-04-26] MEDS: PRENATAL VITAMINS W/ FOLIC ACID TABLET (FP) PO SCH (10:45)
[2022-04-26] MEDS: NICOTINE 21 MG/24 HOURS TOPICAL PATCH TD SCH (10:45)
[2022-04-26] MEDS: IBUPROFEN 600 MG TABLET (FP) PO PRN (10:54)
[2022-04-26 12:51] VITALS: BP 114/68; PULSE 81
[2022-04-27] MEDS ORDERED: chlordiazePOXIDE HCL 25 MG CAPSULE PO SCH (05:00)
[2022-04-28] MEDS ORDERED: chlordiazePOXIDE HCL 10 MG CAPSULE PO PRN
[2022-04-28] MEDS ORDERED: chlordiazePOXIDE HCL 10 MG CAPSULE PO SCH (05:00)
[2022-04-29] MEDS ORDERED: chlordiazePOXIDE HCL 10 MG CAPSULE PO SCH (05:00)
[2022-04-30] MEDS ORDERED: chlordiazePOXIDE HCL 10 MG CAPSULE PO ONE (05:00)
== END 2022-04-26 12:38 | disposition left against medical advice (07) | DRG 770 ==
LOC: YASAS 15:34 → UNDOADMIN 22:12 → Y3N 22:12
PROVIDERS: ADMIT Allergy & Immunology; ATTEND Allergy & Immunology
PROC: HZ2ZZZZ Detoxification Services for Substance Abuse Treatment (ICD-10-PCS; principal; 2022-04-24)
DX: F10.230 Alcohol dependence with withdrawal, uncomplicated (principal); F14.20 Cocaine dependence, uncomplicated; F12.20 Cannabis dependence, uncomplicated; F17.210 Nicotine dependence, cigarettes, uncomplicated; F25.9 Schizoaffective disorder, unspecified; J45.20 Mild intermittent asthma, uncomplicated; H54.61 Unqualified visual loss, right eye, normal vision left eye; H91.91 Unspecified hearing loss, right ear; M19.90 Unspecified osteoarthritis, unspecified site; Z99.89 Dependence on other enabling machines and devices; Z88.8 Allergy status to other drugs, medicaments and biological substances
CPT/HCPCS: 36415; 80053; 85027; 86780; C9803-CS; U0003; U0005

== ENCOUNTER 2022-06-03 14:21 | Inpatient (IN) | payer OTHER ==
[2022-06-03 14:46] VITALS: BMI 19.3
[2022-06-03] MEDS ORDERED: ALBUTEROL SO4 HFA INHALER IH PRN (15:28)
[2022-06-03] MEDS ORDERED: BENZONATATE 200 MG CAPSULE PO PRN (15:34)
[2022-06-03] MEDS ORDERED: NICOTINE POLACRILEX 2 MG GUM BUC PRN (15:34)
[2022-06-03] MEDS ORDERED: MAGNESIUM HYDROX 2400MG/30ML ORAL SUSPENSION 30 ML CUP PO PRN (15:34)
[2022-06-03] MEDS ORDERED: P-EPHED 60MG/TRIPROLIDI 2.5MG TABLET PO PRN (15:34)
[2022-06-03] MEDS ORDERED: IBUPROFEN 400 MG TABLET (FP) PO PRN (15:34)
[2022-06-03] MEDS ORDERED: guaiFENesin 600 MG TABLET.ER (FP) PO PRN (15:34)
[2022-06-03] MEDS ORDERED: hydrOXYzine PAMOATE 25 MG CAPSULE (FP) PO PRN (15:34)
[2022-06-03] MEDS ORDERED: BISMUTH SUBSALICYLATE 524 MG/30 ML PO PRN (15:34)
[2022-06-03] MEDS ORDERED: MAG HYDROX/AL HYDROX/SIMETH 30 ML UNIT-DOSE CUP PO PRN (15:34)
[2022-06-03] MEDS ORDERED: MELATONIN 5 MG TABLETS PO PRN (15:34)
[2022-06-03] MEDS ORDERED: ONDANSETRON *ODT* 4 MG TABLET SL PRN (15:34)
[2022-06-03] MEDS ORDERED: BENZOCAINE/MENTHOL (CHLORASEPTIC ) LOZENGE MM PRN (15:34)
[2022-06-03] MEDS ORDERED: POLYETHYLENE GLYCOL (HEALTHYLAX) 3350 17 GM PACKET PO PRN (15:34)
[2022-06-03] MEDS ORDERED: IBUPROFEN 600 MG TABLET (FP) PO PRN (15:34)
[2022-06-03] MEDS ORDERED: ACETAMINOPHEN 325 MG TABLET (FP) PO PRN ×2 (15:34)
[2022-06-03] MEDS ORDERED: LOPERAMIDE HCL 2 MG CAPSULE PO PRN (15:34)
[2022-06-03] MEDS: THIAMINE HCL 100 MG TABLET (FP) PO SCH (23:23)
[2022-06-04] MEDS: PRENATAL VITAMINS W/ FOLIC ACID TABLET (FP) PO SCH (10:20)
[2022-06-04] MEDS: risperiDONE 0.5 MG TABLET PO SCH (10:56)
[2022-06-04 12:28] LABS: CALCIUM 9.2 mg/dL (8.5-10.1)
[2022-06-04 12:29] LABS: ALBUMIN 3.4 g/dl (3.4-5.0); BLOOD UREA NITROGEN 8.2 mg/dL (7-18)
[2022-06-04 12:30] LABS: HEMATOCRIT 40.2 % (35.4-49); HEMOGLOBIN 13.6 GM/dL (11.7-16.9); MCH 29.6 pg (25.7-33.7); MCHC 33.7 g/dl (32.0-35.9); MEAN CELL VOLUME 87.9 fl (80-96); MEAN PLT VOLUME 7.4 fl (7.5-11.1); PLATELET COUNT 272 10^3/uL (134-434); RBC 4.58 M/mm3 (4.00-5.60); RDW 13.9 % (11.9-15.9); WHITE BLOOD COUNT 3.5 K/mm3 (4.0-10.0)
[2022-06-04 12:32] LABS: CREATININE 0.7 mg/dL (0.55-1.3)
[2022-06-04 12:33] LABS: TOT PROT 7.2 g/dl (6.4-8.2)
[2022-06-04 12:34] LABS: BILIRUBIN,TOTAL 0.7 mg/dL (0.2-1)
[2022-06-04] MEDS: THIAMINE HCL 100 MG TABLET (FP) PO SCH (21:48)
[2022-06-05] MEDS: risperiDONE 0.5 MG TABLET PO SCH ×2 (00:09→10:11)
[2022-06-05 10:10] VITALS: BP 119/86; PULSE 74; RESP 17; TEMP 96.7
[2022-06-05] MEDS: PRENATAL VITAMINS W/ FOLIC ACID TABLET (FP) PO SCH (10:11)
== END 2022-06-05 11:16 | disposition other institution (70) | DRG 774 ==
LOC: YASAS 14:21 → Y6N 18:12
PROVIDERS: ADMIT Allergy & Immunology; ATTEND Surgery
PROC: HZ2ZZZZ Detoxification Services for Substance Abuse Treatment (ICD-10-PCS; principal; 2022-06-03)
DX: F10.230 Alcohol dependence with withdrawal, uncomplicated (principal); F14.20 Cocaine dependence, uncomplicated; F12.20 Cannabis dependence, uncomplicated; F17.210 Nicotine dependence, cigarettes, uncomplicated; F20.9 Schizophrenia, unspecified; H54.61 Unqualified visual loss, right eye, normal vision left eye; Z86.19 Personal history of other infectious and parasitic diseases; Z88.8 Allergy status to other drugs, medicaments and biological substances; Z99.89 Dependence on other enabling machines and devices; Z59.00 Homelessness unspecified; Z56.0 Unemployment, unspecified
CPT/HCPCS: 36415; 80053; 85027; 86780; C9803-CS; U0003; U0005

== ENCOUNTER 2022-08-03 11:33 | Inpatient (IN) | payer OTHER ==
[2022-08-03] MEDS ORDERED: DICYCLOMINE HCL 10 MG CAPSULE PO PRN (14:33)
[2022-08-03] MEDS ORDERED: NICOTINE 10 MG CARTRIDGE (INHALER) IH PRN (14:33)
[2022-08-03] MEDS ORDERED: guaiFENesin 600 MG TABLET.ER (FP) PO PRN (14:33)
[2022-08-03] MEDS ORDERED: COLLOIDAL OATMEAL 1 BAR EACH TP PRN (14:33)
[2022-08-03] MEDS ORDERED: NALOXONE HCL (KLOXXADO) 8 MG SPRAY NS PRN (14:33)
[2022-08-03] MEDS ORDERED: ONDANSETRON *ODT* 4 MG TABLET SL PRN (14:33)
[2022-08-03] MEDS ORDERED: BENZOCAINE/MENTHOL (CHLORASEPTIC ) LOZENGE MM PRN (14:33)
[2022-08-03] MEDS ORDERED: AMMONIUM LACTATE 12% LOTION 225 GM BOTTLE TP PRN (14:33)
[2022-08-03] MEDS ORDERED: hydrOXYzine PAMOATE 25 MG CAPSULE (FP) PO PRN (14:33)
[2022-08-03] MEDS ORDERED: LOPERAMIDE HCL 2 MG CAPSULE PO PRN (14:33)
[2022-08-03] MEDS ORDERED: METHOCARBAMOL 500 MG TABLET PO PRN (14:33)
[2022-08-03] MEDS ORDERED: NICOTINE POLACRILEX 2 MG GUM BUC PRN (14:33)
[2022-08-03] MEDS ORDERED: BENZONATATE 200 MG CAPSULE PO PRN (14:33)
[2022-08-03] MEDS ORDERED: MAG HYDROX/AL HYDROX/SIMETH 30 ML UNIT-DOSE CUP PO PRN (14:33)
[2022-08-03] MEDS ORDERED: BISMUTH SUBSALICYLATE 524 MG/30 ML PO PRN (14:33)
[2022-08-03] MEDS ORDERED: MAGNESIUM HYDROX 2400MG/30ML ORAL SUSPENSION 30 ML CUP PO PRN (14:33)
[2022-08-03] MEDS ORDERED: NALOXONE HCL 0.4 MG/ML VIAL IM PRN (14:33)
[2022-08-03] MEDS ORDERED: POLYETHYLENE GLYCOL (HEALTHYLAX) 3350 17 GM PACKET PO PRN (14:33)
[2022-08-03] MEDS ORDERED: ALBUTEROL SO4 HFA INHALER IH PRN (14:40)
[2022-08-03] MEDS: NICOTINE 21 MG/24 HOURS TOPICAL PATCH TD SCH (14:57)
[2022-08-03 15:18] VITALS: RESP 18
[2022-08-03] MEDS: LORazepam 2 MG TABLET PO SCH ×2 (17:46→22:24)
[2022-08-03] MEDS ORDERED: MELATONIN 5 MG TABLETS PO SCH (22:00)
[2022-08-03] MEDS ORDERED: THIAMINE HCL 100 MG TABLET (FP) PO SCH (22:00)
[2022-08-03] MEDS: SULFAMETHOXAZOLE/TRIMETHOPRIM 800MG/160MG D.S. TABLET PO SCH (22:24)
[2022-08-04] MEDS: LORazepam 2 MG TABLET PO SCH ×3 (05:54→17:12)
[2022-08-04] MEDS ORDERED: PRENATAL VITAMINS W/ FOLIC ACID TABLET (FP) PO SCH (10:00)
[2022-08-04] MEDS: NICOTINE 21 MG/24 HOURS TOPICAL PATCH TD SCH (10:10)
[2022-08-04] MEDS: SULFAMETHOXAZOLE/TRIMETHOPRIM 800MG/160MG D.S. TABLET PO SCH (10:10)
[2022-08-04] MEDS: ACETAMINOPHEN 325 MG TABLET (FP) PO PRN ×2 (10:13→17:13)
[2022-08-04 12:01] LABS: HEMATOCRIT 41.2 % (35.4-49); HEMOGLOBIN 13.2 GM/dL (11.7-16.9); MCH 28.8 pg (25.7-33.7); MCHC 32.1 g/dl (32.0-35.9); MEAN CELL VOLUME 89.7 fl (80-96); MEAN PLT VOLUME 7.7 fl (7.5-11.1); PLATELET COUNT 284 10^3/uL (134-434); RBC 4.59 M/mm3 (4.00-5.60); RDW 14.6 % (11.9-15.9); WHITE BLOOD COUNT 3.6 K/mm3 (4.0-10.0)
[2022-08-04] MEDS ORDERED: SULFAMETHOXAZOLE/TRIMETHOPRIM 800MG/160MG D.S. TABLET PO SCH (12:30)
[2022-08-04 12:36] LABS: POTASSIUM 4.2 mmol/L (3.5-5.1)
[2022-08-04 12:40] LABS: ALBUMIN 3.2 g/dl (3.4-5.0); BLOOD UREA NITROGEN 7.8 mg/dL (7-18); CALCIUM 9.1 mg/dL (8.5-10.1)
[2022-08-04 12:43] LABS: CREATININE 0.7 mg/dL (0.55-1.3)
[2022-08-04 12:44] LABS: BILIRUBIN,TOTAL 1.2 mg/dL (0.2-1); TOT PROT 6.7 g/dl (6.4-8.2)
[2022-08-04] MEDS ORDERED: BACITRACIN 0.9 GM PACKET TP SCH (13:00)
[2022-08-04 17:42] VITALS: BP 112/63; PULSE 91; TEMP 97.1
[2022-08-05] MEDS ORDERED: LORazepam 1 MG TABLET PO SCH (05:00)
[2022-08-06] MEDS ORDERED: LORazepam 0.5 MG TABLET PO SCH (05:00)
[2022-08-07] MEDS ORDERED: LORazepam 0.5 MG TABLET PO ONE (05:00)
== END 2022-08-04 17:45 | disposition left against medical advice (07) | DRG 770 ==
LOC: YASAS 11:33 → Y3N 14:26
PROVIDERS: ADMIT Allergy & Immunology; ATTEND Surgery
PROC: HZ2ZZZZ Detoxification Services for Substance Abuse Treatment (ICD-10-PCS; principal; 2022-08-03)
DX: F10.230 Alcohol dependence with withdrawal, uncomplicated (principal); F12.20 Cannabis dependence, uncomplicated; F17.210 Nicotine dependence, cigarettes, uncomplicated; H54.61 Unqualified visual loss, right eye, normal vision left eye; J45.909 Unspecified asthma, uncomplicated; M16.0 Bilateral primary osteoarthritis of hip; Z87.828 Personal history of other (healed) physical injury and trauma; Z88.8 Allergy status to other drugs, medicaments and biological substances; Z56.0 Unemployment, unspecified; Z59.00 Homelessness unspecified
CPT/HCPCS: 36415; 80053; 85027; 86780; 87635; 87811

== ENCOUNTER 2022-10-11 21:10 | Inpatient (IN) | payer OTHER ==
[2022-10-11 23:00] VITALS: BMI 22.6
[2022-10-12] MEDS ORDERED: MAGNESIUM HYDROX 2400MG/30ML ORAL SUSPENSION 30 ML CUP PO PRN (02:30)
[2022-10-12] MEDS ORDERED: POLYETHYLENE GLYCOL (HEALTHYLAX) 3350 17 GM PACKET PO PRN (02:30)
[2022-10-12] MEDS ORDERED: NALOXONE HCL 0.4 MG/ML VIAL IM PRN (02:30)
[2022-10-12] MEDS ORDERED: BENZOCAINE/MENTHOL (CHLORASEPTIC ) LOZENGE MM PRN (02:30)
[2022-10-12] MEDS ORDERED: NALOXONE HCL (KLOXXADO) 8 MG SPRAY NS PRN (02:30)
[2022-10-12] MEDS ORDERED: LOPERAMIDE HCL 2 MG CAPSULE PO PRN (02:30)
[2022-10-12] MEDS ORDERED: BENZONATATE 200 MG CAPSULE PO PRN (02:30)
[2022-10-12] MEDS ORDERED: MAG HYDROX/AL HYDROX/SIMETH 30 ML UNIT-DOSE CUP PO PRN (02:30)
[2022-10-12] MEDS ORDERED: BISMUTH SUBSALICYLATE 524 MG/30 ML PO PRN (02:30)
[2022-10-12] MEDS ORDERED: guaiFENesin 600 MG TABLET.ER (FP) PO PRN (02:30)
[2022-10-12] MEDS ORDERED: DICYCLOMINE HCL 10 MG CAPSULE PO PRN (02:30)
[2022-10-12] MEDS ORDERED: NICOTINE POLACRILEX 2 MG GUM BUC PRN (02:30)
[2022-10-12] MEDS ORDERED: ONDANSETRON *ODT* 4 MG TABLET SL PRN (02:30)
[2022-10-12] MEDS ORDERED: IBUPROFEN 600 MG TABLET (FP) PO PRN (02:30)
[2022-10-12] MEDS ORDERED: diazePAM 5 MG TABLET PO PRN (10:21)
[2022-10-12] MEDS: NICOTINE 21 MG/24 HOURS TOPICAL PATCH TD SCH (10:24)
[2022-10-12] MEDS: PRENATAL VITAMINS W/ FOLIC ACID TABLET (FP) PO SCH (10:25)
[2022-10-12 10:37] LABS: POTASSIUM 4.8 mmol/L (3.5-5.1)
[2022-10-12 10:39] LABS: HEMATOCRIT 39.3 % (35.4-49); HEMOGLOBIN 13.2 GM/dL (11.7-16.9); MCH 29.5 pg (25.7-33.7); MCHC 33.6 g/dl (32.0-35.9); MEAN CELL VOLUME 87.6 fl (80-96); MEAN PLT VOLUME 7.2 fl (7.5-11.1); PLATELET COUNT 299 10^3/uL (134-434); RBC 4.49 M/mm3 (4.00-5.60); WHITE BLOOD COUNT 4.4 K/mm3 (4.0-10.0)
[2022-10-12] MEDS: diazePAM 5 MG TABLET PO SCH ×3 (10:42→22:31)
[2022-10-12 10:47] LABS: ALBUMIN 3.3 g/dl (3.4-5.0)
[2022-10-12 10:48] LABS: TOT PROT 7.2 g/dl (6.4-8.2)
[2022-10-12 10:49] LABS: BILIRUBIN,TOTAL 0.7 mg/dL (0.2-1)
[2022-10-12 10:50] LABS: CREATININE 0.7 mg/dL (0.55-1.3)
[2022-10-12 10:56] LABS: BLOOD UREA NITROGEN 12.5 mg/dL (7-18); CALCIUM 9.1 mg/dL (8.5-10.1)
[2022-10-12] MEDS: METHOCARBAMOL 500 MG TABLET PO PRN ×2 (14:37→22:30)
[2022-10-12] MEDS: MELATONIN 5 MG TABLETS PO SCH (22:30)
[2022-10-12] MEDS: THIAMINE HCL 100 MG TABLET (FP) PO SCH (22:30)
[2022-10-13] MEDS: diazePAM 5 MG TABLET PO SCH ×4 (05:57→22:51)
[2022-10-13] MEDS: METHOCARBAMOL 500 MG TABLET PO PRN ×2 (06:08→22:50)
[2022-10-13] MEDS: PRENATAL VITAMINS W/ FOLIC ACID TABLET (FP) PO SCH (11:14)
[2022-10-13] MEDS: NICOTINE 21 MG/24 HOURS TOPICAL PATCH TD SCH (11:14)
[2022-10-13] MEDS: ALBUTEROL SO4 HFA INHALER IH PRN ×2 (17:18→22:51)
[2022-10-13] MEDS: THIAMINE HCL 100 MG TABLET (FP) PO SCH (22:50)
[2022-10-13] MEDS: MELATONIN 5 MG TABLETS PO SCH (22:50)
[2022-10-14] MEDS: diazePAM 5 MG TABLET PO SCH (05:28)
[2022-10-14] MEDS: METHOCARBAMOL 500 MG TABLET PO PRN ×2 (05:29→17:00)
[2022-10-14] MEDS: PRENATAL VITAMINS W/ FOLIC ACID TABLET (FP) PO SCH (11:18)
[2022-10-14] MEDS: NICOTINE 21 MG/24 HOURS TOPICAL PATCH TD SCH (11:18)
[2022-10-14] MEDS: MELATONIN 5 MG TABLETS PO SCH (22:38)
[2022-10-14] MEDS: THIAMINE HCL 100 MG TABLET (FP) PO SCH (22:38)
[2022-10-15] MEDS: diazePAM 5 MG TABLET PO SCH ×4 (05:11→20:42)
[2022-10-15] MEDS: METHOCARBAMOL 500 MG TABLET PO PRN ×3 (05:13→22:35)
[2022-10-15] MEDS: ACETAMINOPHEN 325 MG TABLET (FP) PO PRN ×3 (05:13→22:34)
[2022-10-15] MEDS: PRENATAL VITAMINS W/ FOLIC ACID TABLET (FP) PO SCH (10:53)
[2022-10-15] MEDS: NICOTINE 21 MG/24 HOURS TOPICAL PATCH TD SCH (10:56)
[2022-10-15] MEDS: THIAMINE HCL 100 MG TABLET (FP) PO SCH (22:33)
[2022-10-15] MEDS: MELATONIN 5 MG TABLETS PO SCH (22:33)
[2022-10-16] MEDS ORDERED: diazePAM 5 MG TABLET PO ONE (06:00)
[2022-10-16 06:08] VITALS: PULSE 67
[2022-10-16] MEDS: ACETAMINOPHEN 325 MG TABLET (FP) PO PRN (06:21)
[2022-10-16] MEDS: METHOCARBAMOL 500 MG TABLET PO PRN (06:22)
[2022-10-16 08:55] VITALS: BP 100/63; RESP 20; TEMP 98
[2022-10-16] MEDS: PRENATAL VITAMINS W/ FOLIC ACID TABLET (FP) PO SCH (10:47)
[2022-10-16] MEDS: NICOTINE 21 MG/24 HOURS TOPICAL PATCH TD SCH (10:47)
== END 2022-10-16 11:56 | disposition home or self-care (01) | DRG 774 ==
LOC: YASAS 21:10 → Y3N 10-12 03:34
PROVIDERS: ADMIT Allergy & Immunology; ATTEND Surgery
PROC: HZ2ZZZZ Detoxification Services for Substance Abuse Treatment (ICD-10-PCS; principal; 2022-10-12)
DX: F10.230 Alcohol dependence with withdrawal, uncomplicated (principal); F14.20 Cocaine dependence, uncomplicated; F12.20 Cannabis dependence, uncomplicated; F17.210 Nicotine dependence, cigarettes, uncomplicated; F19.24 Other psychoactive substance dependence with psychoactive substance-induced mood disorder; H54.61 Unqualified visual loss, right eye, normal vision left eye; J45.20 Mild intermittent asthma, uncomplicated; M16.0 Bilateral primary osteoarthritis of hip; S09.8XXA Other specified injuries of head, initial encounter; Y04.0XXA Assault by unarmed brawl or fight, initial encounter; Y92.230 Patient room in hospital as the place of occurrence of the external cause; Z86.59 Personal history of other mental and behavioral disorders; Z99.89 Dependence on other enabling machines and devices; Z88.8 Allergy status to other drugs, medicaments and biological substances; Z59.00 Homelessness unspecified; Z91.199 Patient's noncompliance with other medical treatment and regimen due to unspecified reason
CPT/HCPCS: 36415; 80053; 85027; 86780; 87635; 87811; 93005; 93010

== ENCOUNTER 2022-10-14 07:48 | Emergency (ER) | payer OTHER ==
[2022-10-14 08:05] VITALS: BP 135/94; PULSE 82; RESP 17; BMI 25.0
[2022-10-14 08:18] VITALS: TEMP 97.4
[2022-10-14 10:16] LABS: BASO % 0.7 % (0-2.0); EOS % 3.3 % (0-4.5); HEMATOCRIT 39.8 % (35.4-49); HEMOGLOBIN 13.5 GM/dL (11.7-16.9); LYMPH % 28.8 % (8-40); MCH 29.6 pg (25.7-33.7); MCHC 33.8 g/dl (32.0-35.9); MEAN CELL VOLUME 87.4 fl (80-96); MEAN PLT VOLUME 7.4 fl (7.5-11.1); MONO % 9.4 % (3.8-10.2); NEUT % 57.8 % (42.8-82.8); PLATELET COUNT 290 10^3/uL (134-434); RBC 4.55 M/mm3 (4.00-5.60); RDW 14.2 % (11.9-15.9); WHITE BLOOD COUNT 4.9 K/mm3 (4.0-10.0)
[2022-10-14 10:31] LABS: INR 1.06 (0.83-1.09); PROTHROMBIN TIME (PATIENT) 12.3 SEC (9.7-13.0)
[2022-10-14 10:33] LABS: POTASSIUM 4.2 mmol/L (3.5-5.1)
[2022-10-14 10:35] LABS: ACTIVATED PTT 29.7 SECONDS (25.2-36.5)
[2022-10-14 10:36] LABS: ALBUMIN 3.3 g/dl (3.4-5.0); BLOOD UREA NITROGEN 9.3 mg/dL (7-18); CALCIUM 8.6 mg/dL (8.5-10.1)
[2022-10-14 10:41] LABS: CREATININE 0.6 mg/dL (0.55-1.3)
[2022-10-14 10:42] LABS: BILIRUBIN,TOTAL 0.4 mg/dL (0.2-1)
[2022-10-14] MEDS ORDERED: ACETAMINOPHEN 325 MG TABLET (FP) PO ONE (10:55)
[2022-10-14] MEDS ORDERED: ACETAMINOPHEN 325 MG TABLET (FP) ONE (10:58)
== END 2022-10-14 11:46 | disposition home or self-care (01) ==
LOC: JER 07:48
DX: S02.2XXA Fracture of nasal bones, initial encounter for closed fracture (principal); Y04.0XXA Assault by unarmed brawl or fight, initial encounter
CPT/HCPCS: 36415; 70450-TC; 70486-TC; 72125-TC; 80053; 85025; 85610; 85730; 93005; 93010; 99285-25

== ENCOUNTER 2023-01-04 11:34 | Inpatient (IN) | payer OTHER ==
[2023-01-04] MEDS ORDERED: DICYCLOMINE HCL 10 MG CAPSULE PO PRN (14:02)
[2023-01-04] MEDS ORDERED: MAG HYDROX/AL HYDROX/SIMETH 30 ML UNIT-DOSE CUP PO PRN (14:02)
[2023-01-04] MEDS ORDERED: BISMUTH SUBSALICYLATE 262 MG/15 ML BTL PO PRN (14:02)
[2023-01-04] MEDS ORDERED: BENZONATATE 200 MG CAPSULE PO PRN (14:02)
[2023-01-04] MEDS ORDERED: hydrOXYzine PAMOATE 25 MG CAPSULE (FP) PO PRN (14:02)
[2023-01-04] MEDS ORDERED: ACETAMINOPHEN 325 MG TABLET (FP) PO PRN (14:02)
[2023-01-04] MEDS ORDERED: guaiFENesin 600 MG TABLET.ER (FP) PO PRN (14:02)
[2023-01-04] MEDS ORDERED: NALOXONE HCL 0.4 MG/ML VIAL IM PRN (14:02)
[2023-01-04] MEDS ORDERED: IBUPROFEN 400 MG TABLET (FP) PO PRN (14:02)
[2023-01-04] MEDS ORDERED: MAGNESIUM HYDROX 2400MG/30ML ORAL SUSPENSION 30 ML CUP PO PRN (14:02)
[2023-01-04] MEDS ORDERED: BENZOCAINE/MENTHOL (CHLORASEPTIC ) LOZENGE MM PRN (14:02)
[2023-01-04] MEDS ORDERED: LOPERAMIDE HCL 2 MG CAPSULE PO PRN (14:02)
[2023-01-04] MEDS ORDERED: IBUPROFEN 600 MG TABLET (FP) PO PRN (14:02)
[2023-01-04] MEDS ORDERED: ONDANSETRON *ODT* 4 MG TABLET SL PRN (14:02)
[2023-01-04] MEDS ORDERED: NALOXONE HCL (KLOXXADO) 8 MG SPRAY NS PRN (14:02)
[2023-01-04] MEDS ORDERED: POLYETHYLENE GLYCOL (HEALTHYLAX) 3350 17 GM PACKET PO PRN (14:02)
[2023-01-04] MEDS: PRENATAL VITAMINS W/ FOLIC ACID TABLET (FP) PO SCH (15:08)
[2023-01-04] MEDS: MELATONIN 5 MG TABLETS PO SCH (22:20)
[2023-01-04] MEDS: THIAMINE HCL 100 MG TABLET (FP) PO SCH (22:20)
[2023-01-04] MEDS: METHOCARBAMOL 500 MG TABLET PO PRN (22:20)
[2023-01-05] MEDS ORDERED: chlordiazePOXIDE HCL 25 MG CAPSULE PO PRN (09:47)
[2023-01-05] MEDS ORDERED: ALBUTEROL SO4 HFA INHALER IH PRN (09:49)
[2023-01-05] MEDS: PRENATAL VITAMINS W/ FOLIC ACID TABLET (FP) PO SCH (10:13)
[2023-01-05] MEDS: chlordiazePOXIDE HCL 25 MG CAPSULE PO SCH ×3 (10:14→22:33)
[2023-01-05 10:35] LABS: CHLORIDE 104 mmol/L (98-107); POTASSIUM 4.2 mmol/L (3.5-5.1); SODIUM 137 mmol/L (136-145)
[2023-01-05 10:37] LABS: CALCIUM 8.6 mg/dL (8.5-10.1); HEMOGLOBIN 13.6 GM/dL (11.7-16.9); MCH 28.8 pg (25.7-33.7); MCHC 33.3 g/dl (32.0-35.9); MEAN CELL VOLUME 86.4 fl (80-96); MEAN PLT VOLUME 7.3 fl (7.5-11.1); PLATELET COUNT 263 10^3/uL (134-434); RBC 4.74 M/mm3 (4.00-5.60); RDW 13.5 % (11.9-15.9); WHITE BLOOD COUNT 3.4 K/mm3 (4.0-10.0)
[2023-01-05 10:38] LABS: ALBUMIN 3.2 g/dl (3.4-5.0); ANION GAP 6 mmol/L (4-13); BLOOD UREA NITROGEN 11.9 mg/dL (7-18); CO2 28 mmol/L (21-32); GLUCOSE,RANDOM 87 mg/dL (74-106)
[2023-01-05 10:41] LABS: CREATININE 0.7 mg/dL (0.55-1.3); SGOT/AST 16 U/L (15-37); SGPT/ALT 19 U/L (13-61)
[2023-01-05 10:42] LABS: BILIRUBIN,TOTAL 0.5 mg/dL (0.2-1); TOT PROT 6.8 g/dl (6.4-8.2)
[2023-01-05 10:43] LABS: ALK PHOS 71 U/L (45-117)
[2023-01-05] MEDS: THIAMINE HCL 100 MG TABLET (FP) PO SCH (22:29)
[2023-01-05] MEDS: MELATONIN 5 MG TABLETS PO SCH (22:33)
[2023-01-05] MEDS: METHOCARBAMOL 500 MG TABLET PO PRN (22:33)
[2023-01-06] MEDS: chlordiazePOXIDE HCL 25 MG CAPSULE PO SCH ×4 (06:00→22:43)
[2023-01-06] MEDS: PRENATAL VITAMINS W/ FOLIC ACID TABLET (FP) PO SCH (10:06)
[2023-01-06] MEDS: THIAMINE HCL 100 MG TABLET (FP) PO SCH (22:43)
[2023-01-06] MEDS: MELATONIN 5 MG TABLETS PO SCH (22:43)
[2023-01-07] MEDS: chlordiazePOXIDE HCL 25 MG CAPSULE PO SCH ×4 (05:37→22:49)
[2023-01-07] MEDS: PRENATAL VITAMINS W/ FOLIC ACID TABLET (FP) PO SCH (10:06)
[2023-01-07] MEDS: METHOCARBAMOL 500 MG TABLET PO PRN (10:06)
[2023-01-07] MEDS: MELATONIN 5 MG TABLETS PO SCH (22:48)
[2023-01-07] MEDS: THIAMINE HCL 100 MG TABLET (FP) PO SCH (22:48)
[2023-01-08] MEDS ORDERED: chlordiazePOXIDE HCL 10 MG CAPSULE PO PRN
[2023-01-08] MEDS: chlordiazePOXIDE HCL 10 MG CAPSULE PO SCH ×4 (05:50→22:47)
[2023-01-08] MEDS: METHOCARBAMOL 500 MG TABLET PO PRN ×2 (06:09→15:25)
[2023-01-08] MEDS: PRENATAL VITAMINS W/ FOLIC ACID TABLET (FP) PO SCH (10:20)
[2023-01-08] MEDS: MELATONIN 5 MG TABLETS PO SCH (22:46)
[2023-01-08] MEDS: THIAMINE HCL 100 MG TABLET (FP) PO SCH (22:47)
[2023-01-09] MEDS ORDERED: chlordiazePOXIDE HCL 10 MG CAPSULE PO SCH (05:00)
[2023-01-09] MEDS: METHOCARBAMOL 500 MG TABLET PO PRN (06:02)
[2023-01-09 09:01] VITALS: BP 111/60; PULSE 85; RESP 16; TEMP 97.6
[2023-01-10] MEDS ORDERED: chlordiazePOXIDE HCL 10 MG CAPSULE PO ONE (05:00)
== END 2023-01-09 09:10 | disposition home or self-care (01) | DRG 775 ==
LOC: YASAS 11:34 → Y3N 14:41
PROVIDERS: ADMIT Allergy & Immunology; ATTEND Surgery
PROC: HZ2ZZZZ Detoxification Services for Substance Abuse Treatment (ICD-10-PCS; principal; 2023-01-04)
DX: F10.230 Alcohol dependence with withdrawal, uncomplicated (principal); F12.20 Cannabis dependence, uncomplicated; F17.210 Nicotine dependence, cigarettes, uncomplicated; F20.9 Schizophrenia, unspecified; H54.61 Unqualified visual loss, right eye, normal vision left eye; J45.909 Unspecified asthma, uncomplicated; Z99.89 Dependence on other enabling machines and devices; Z88.8 Allergy status to other drugs, medicaments and biological substances
CPT/HCPCS: 36415; 80053; 80307; 85027; 86780; 87635

== ENCOUNTER 2023-02-04 08:50 | Inpatient (IN) | payer OTHER ==
[2023-02-04 10:28] VITALS: BMI 20.1
[2023-02-04] MEDS ORDERED: METHOCARBAMOL 500 MG TABLET PO PRN (12:25)
[2023-02-04] MEDS ORDERED: NICOTINE POLACRILEX 4 MG GUM BUC PRN (12:25)
[2023-02-04] MEDS ORDERED: guaiFENesin 600 MG TABLET.ER (FP) PO PRN (12:25)
[2023-02-04] MEDS ORDERED: NALOXONE HCL (KLOXXADO) 8 MG SPRAY NS PRN (12:25)
[2023-02-04] MEDS ORDERED: BENZOCAINE/MENTHOL (CHLORASEPTIC ) LOZENGE MM PRN (12:25)
[2023-02-04] MEDS ORDERED: NALOXONE HCL 0.4 MG/ML VIAL IM PRN (12:25)
[2023-02-04] MEDS ORDERED: POLYETHYLENE GLYCOL (HEALTHYLAX) 3350 17 GM PACKET PO PRN (12:25)
[2023-02-04] MEDS ORDERED: ACETAMINOPHEN 325 MG TABLET (FP) PO PRN (12:25)
[2023-02-04] MEDS ORDERED: LOPERAMIDE HCL 2 MG CAPSULE PO PRN (12:25)
[2023-02-04] MEDS ORDERED: MAG HYDROX/AL HYDROX/SIMETH 30 ML UNIT-DOSE CUP PO PRN (12:25)
[2023-02-04] MEDS ORDERED: ONDANSETRON *ODT* 4 MG TABLET SL PRN (12:25)
[2023-02-04] MEDS ORDERED: MAGNESIUM HYDROX 2400MG/30ML ORAL SUSPENSION 30 ML CUP PO PRN (12:25)
[2023-02-04] MEDS ORDERED: ALBUTEROL SO4 HFA INHALER IH PRN (12:31)
[2023-02-04] MEDS ORDERED: THIAMINE HCL 100 MG TABLET (FP) PO SCH (22:00)
[2023-02-04] MEDS ORDERED: MELATONIN 5 MG TABLETS PO SCH (22:00)
[2023-02-05] MEDS ORDERED: PRENATAL VITAMINS W/ FOLIC ACID TABLET (FP) PO SCH (10:00)
[2023-02-05 10:12] VITALS: BP 104/62; PULSE 79; RESP 18; TEMP 98
[2023-02-05 11:39] LABS: HEMATOCRIT 40.6 % (35.4-49); HEMOGLOBIN 13.5 GM/dL (11.7-16.9); MCH 29.4 pg (25.7-33.7); MCHC 33.3 g/dl (32.0-35.9); MEAN CELL VOLUME 88.2 fl (80-96); MEAN PLT VOLUME 7.5 fl (7.5-11.1); PLATELET COUNT 281 10^3/uL (134-434); RDW 13.5 % (11.9-15.9); WHITE BLOOD COUNT 6.4 K/mm3 (4.0-10.0)
[2023-02-05 12:01] LABS: CHLORIDE 104 mmol/L (98-107); POTASSIUM 4.1 mmol/L (3.5-5.1); SODIUM 139 mmol/L (136-145)
[2023-02-05 12:03] LABS: CALCIUM 9.2 mg/dL (8.5-10.1)
[2023-02-05 12:04] LABS: ALBUMIN 3.6 g/dl (3.4-5.0); ANION GAP 6 mmol/L (4-13); BLOOD UREA NITROGEN 8.9 mg/dL (7-18); CO2 29 mmol/L (21-32); GLUCOSE,RANDOM 90 mg/dL (74-106)
[2023-02-05 12:07] LABS: SGOT/AST 12 U/L (15-37); SGPT/ALT 18 U/L (13-61)
[2023-02-05 12:08] LABS: BILIRUBIN,TOTAL 0.4 mg/dL (0.2-1)
[2023-02-05 12:10] LABS: ALK PHOS 67 U/L (45-117); CREATININE 0.7 mg/dL (0.55-1.3)
[2023-02-05 12:11] LABS: TOT PROT 7.6 g/dl (6.4-8.2)
== END 2023-02-05 11:33 | disposition home or self-care (01) | DRG 774 ==
LOC: YASAS 08:50 → Y6N 12:43
PROVIDERS: ADMIT Allergy & Immunology; ATTEND Surgery
PROC: HZ2ZZZZ Detoxification Services for Substance Abuse Treatment (ICD-10-PCS; principal; 2023-02-04)
DX: F10.230 Alcohol dependence with withdrawal, uncomplicated (principal); F14.20 Cocaine dependence, uncomplicated; F12.20 Cannabis dependence, uncomplicated; F17.213 Nicotine dependence, cigarettes, with withdrawal; F20.9 Schizophrenia, unspecified; H54.61 Unqualified visual loss, right eye, normal vision left eye; J45.20 Mild intermittent asthma, uncomplicated; M16.12 Unilateral primary osteoarthritis, left hip; R26.89 Other abnormalities of gait and mobility; Z99.89 Dependence on other enabling machines and devices; Z88.8 Allergy status to other drugs, medicaments and biological substances
CPT/HCPCS: 36415; 80053; 80307; 82140; 85027; 86780; 87811

== ENCOUNTER 2023-05-03 13:15 | Inpatient (IN) | payer OTHER ==
[2023-05-03 14:27] VITALS: BMI 22.1
[2023-05-03] MEDS ORDERED: guaiFENesin 600 MG TABLET.ER (FP) PO PRN (19:35)
[2023-05-03] MEDS ORDERED: POLYETHYLENE GLYCOL (HEALTHYLAX) 3350 17 GM PACKET PO PRN (19:35)
[2023-05-03] MEDS ORDERED: MAG HYDROX/AL HYDROX/SIMETH 30 ML UNIT-DOSE CUP PO PRN (19:35)
[2023-05-03] MEDS ORDERED: hydrOXYzine PAMOATE 25 MG CAPSULE (FP) PO PRN (19:35)
[2023-05-03] MEDS ORDERED: BENZOCAINE/MENTHOL (CHLORASEPTIC ) LOZENGE MM PRN (19:35)
[2023-05-03] MEDS ORDERED: NICOTINE POLACRILEX 2 MG GUM BUC PRN (19:35)
[2023-05-03] MEDS ORDERED: LOPERAMIDE HCL 2 MG CAPSULE PO PRN (19:35)
[2023-05-03] MEDS ORDERED: BENZONATATE 200 MG CAPSULE PO PRN (19:35)
[2023-05-03] MEDS ORDERED: MAGNESIUM HYDROX 2400MG/30ML ORAL SUSPENSION 30 ML CUP PO PRN (19:35)
[2023-05-03] MEDS ORDERED: P-EPHED 60MG/TRIPROLIDI 2.5MG TABLET PO PRN (19:35)
[2023-05-03] MEDS ORDERED: DOCUSATE SODIUM 100 MG CAPSULE (FP) PO PRN (19:35)
[2023-05-03] MEDS ORDERED: ACETAMINOPHEN 325 MG TABLET (FP) PO PRN (19:35)
[2023-05-03] MEDS: MELATONIN 5 MG TABLETS PO SCH (21:31)
[2023-05-03] MEDS: THIAMINE HCL 100 MG TABLET (FP) PO SCH (21:31)
[2023-05-04] MEDS: PRENATAL VITAMINS W/ FOLIC ACID TABLET (FP) PO SCH (09:31)
[2023-05-04 11:58] LABS: CHLORIDE 107 mmol/L (98-107); POTASSIUM 3.9 mmol/L (3.5-5.1); SODIUM 140 mmol/L (136-145)
[2023-05-04 12:01] LABS: ALBUMIN 3.1 g/dl (3.4-5.0); ANION GAP 7 mmol/L (4-13); BLOOD UREA NITROGEN 14.1 mg/dL (7-18); CALCIUM 8.7 mg/dL (8.5-10.1); CO2 26 mmol/L (21-32); GLUCOSE,RANDOM 109 mg/dL (74-106)
[2023-05-04 12:04] LABS: CREATININE 0.7 mg/dL (0.55-1.3); SGOT/AST 20 U/L (15-37); SGPT/ALT 18 U/L (13-61)
[2023-05-04 12:06] LABS: ALK PHOS 55 U/L (45-117); BILIRUBIN,TOTAL 1.3 mg/dL (0.2-1); TOT PROT 6.6 g/dl (6.4-8.2)
[2023-05-04] MEDS: ALBUTEROL SO4 HFA INHALER IH PRN (21:09)
[2023-05-05 11:35] LABS: PH,URINE 6.5 (5.0-8.0); URINE APPEARANCE CLEAR; URINE BILIRUBIN NEGATIVE (NEGATIVE); URINE COLOR YELLOW; URINE GLUCOSE (UA) NEGATIVE (NEGATIVE); URINE KETONE NEGATIVE (NEGATIVE); URINE LEUK ESTERASE NEGATIVE (NEGATIVE); URINE NITRITE NEGATIVE (NEGATIVE); URINE PROTEIN NEGATIVE (NEGATIVE); URINE UROBILINOGEN 0.2 mg/dL (0.2-1.0)
[2023-05-08 06:57] VITALS: TEMP 97.5
[2023-05-08 09:08] VITALS: BP 112/68; PULSE 77; RESP 16
== END 2023-05-08 11:31 | disposition left against medical advice (07) | DRG 770 ==
LOC: YASAS 13:15 → UNDOADMIN 16:24 → Y6N 16:24 → Y3W 19:37
PROVIDERS: ADMIT Allergy & Immunology; ATTEND Psychiatry & Neurology Pain Medicine
PROC: HZ42ZZZ Group Counseling for Substance Abuse Treatment, Cognitive-Behavioral (ICD-10-PCS; principal; 2023-05-03)
DX: F10.20 Alcohol dependence, uncomplicated (principal); F14.20 Cocaine dependence, uncomplicated; F12.20 Cannabis dependence, uncomplicated; F17.210 Nicotine dependence, cigarettes, uncomplicated; F19.282 Other psychoactive substance dependence with psychoactive substance-induced sleep disorder; F20.9 Schizophrenia, unspecified; F41.9 Anxiety disorder, unspecified; F32.A Depression, unspecified; H54.61 Unqualified visual loss, right eye, normal vision left eye; J45.20 Mild intermittent asthma, uncomplicated; M25.552 Pain in left hip; Z99.89 Dependence on other enabling machines and devices; Z88.8 Allergy status to other drugs, medicaments and biological substances; Z56.0 Unemployment, unspecified; Z59.01 Sheltered homelessness
CPT/HCPCS: 36415; 80053; 80305; 80307; 81003

== ENCOUNTER 2023-07-08 09:53 | Inpatient (IN) | payer OTHER ==
[2023-07-08 11:30] VITALS: BMI 20.9
[2023-07-08] MEDS ORDERED: guaiFENesin 600 MG TABLET.ER (FP) PO PRN (14:13)
[2023-07-08] MEDS ORDERED: ACETAMINOPHEN 325 MG TABLET (FP) PO PRN (14:13)
[2023-07-08] MEDS ORDERED: NICOTINE POLACRILEX 4 MG LOZENGE BC PRN (14:13)
[2023-07-08] MEDS ORDERED: NALOXONE HCL (KLOXXADO) 8 MG SPRAY NS PRN (14:13)
[2023-07-08] MEDS ORDERED: MAG HYDROX/AL HYDROX/SIMETH 30 ML UNIT-DOSE CUP PO PRN (14:13)
[2023-07-08] MEDS ORDERED: BENZONATATE 200 MG CAPSULE PO PRN (14:13)
[2023-07-08] MEDS ORDERED: NALOXONE HCL 0.4 MG/ML VIAL IM PRN (14:13)
[2023-07-08] MEDS ORDERED: LOPERAMIDE HCL 2 MG CAPSULE PO PRN (14:13)
[2023-07-08] MEDS ORDERED: ONDANSETRON *ODT* 4 MG TABLET SL PRN (14:13)
[2023-07-08] MEDS ORDERED: POLYETHYLENE GLYCOL (HEALTHYLAX) 3350 17 GM PACKET PO PRN (14:13)
[2023-07-08] MEDS ORDERED: METHOCARBAMOL 500 MG TABLET PO PRN (14:13)
[2023-07-08] MEDS ORDERED: BENZOCAINE/MENTHOL (CHLORASEPTIC ) LOZENGE MM PRN (14:13)
[2023-07-08] MEDS ORDERED: hydrOXYzine PAMOATE 25 MG CAPSULE (FP) PO PRN (14:13)
[2023-07-08] MEDS ORDERED: NICOTINE 21 MG/24 HOURS TOPICAL PATCH TD PRN (14:13)
[2023-07-08] MEDS ORDERED: MAGNESIUM HYDROX 2400MG/30ML ORAL SUSPENSION 30 ML CUP PO PRN (14:13)
[2023-07-08] MEDS ORDERED: LIDOCAINE 5% TOPICAL PATCH TP PRN (14:17)
[2023-07-08] MEDS: MELATONIN 5 MG TABLETS PO SCH (22:17)
[2023-07-08] MEDS: THIAMINE 100 MG TABLET PO SCH (22:17)
[2023-07-08] MEDS: LIDOCAINE PATCH REMOVAL MC SCH (22:49)
[2023-07-09] MEDS ORDERED: ALBUTEROL SO4 HFA INHALER IH PRN (08:56)
[2023-07-09] MEDS: PRENATAL VITAMINS W/ FOLIC ACID TABLET (FP) PO SCH (10:21)
[2023-07-09 12:00] LABS: HEMATOCRIT 37.8 % (35.4-49); HEMOGLOBIN 12.6 GM/dL (11.7-16.9); MCH 28.9 pg (25.7-33.7); MCHC 33.3 g/dl (32.0-35.9); MEAN PLT VOLUME 7.9 fl (7.5-11.1); PLATELET COUNT 247 10^3/uL (134-434); RBC 4.34 M/mm3 (4.00-5.60); RDW 14.4 % (11.9-15.9); WHITE BLOOD COUNT 4.8 K/mm3 (4.0-10.0)
[2023-07-09 12:11] LABS: CHLORIDE 106 mmol/L (98-107); POTASSIUM 3.9 mmol/L (3.5-5.1); SODIUM 136 mmol/L (136-145)
[2023-07-09] MEDS ORDERED: LORazepam 1 MG TABLET PO PRN (12:11)
[2023-07-09 12:15] LABS: ANION GAP 3 mmol/L (4-13); BLOOD UREA NITROGEN 11.4 mg/dL (7-18); CALCIUM 8.7 mg/dL (8.5-10.1); CO2 27 mmol/L (21-32)
[2023-07-09 12:16] LABS: GLUCOSE,RANDOM 85 mg/dL (74-106)
[2023-07-09 12:18] LABS: SGPT/ALT 16 U/L (13-61)
[2023-07-09 12:19] LABS: CREATININE 0.7 mg/dL (0.55-1.3); SGOT/AST 14 U/L (15-37); TOT PROT 6.3 g/dl (6.4-8.2)
[2023-07-09 12:20] LABS: ALK PHOS 55 U/L (45-117); BILIRUBIN,TOTAL 0.8 mg/dL (0.2-1)
[2023-07-09] MEDS: NALTREXONE HCL 50 MG TABLET PO SCH (12:33)
[2023-07-09] MEDS: LORazepam 1 MG TABLET PO SCH (17:23)
[2023-07-09 21:13] VITALS: RESP 16
[2023-07-09] MEDS: LACTULOSE 20 GM/30 ML UDC (FOR ORAL USE ONLY) PO SCH (22:08)
[2023-07-10] MEDS: LORazepam 0.5 MG TABLET PO SCH (05:40)
[2023-07-10 09:29] VITALS: BP 111/70; PULSE 85; TEMP 98.7
[2023-07-11] MEDS ORDERED: LORazepam 0.5 MG TABLET PO ONE (05:00)
== END 2023-07-10 11:10 | disposition home or self-care (01) | DRG 774 ==
LOC: YASAS 09:53 → Y6N 14:01
PROVIDERS: ADMIT Allergy & Immunology; ATTEND Surgery
PROC: HZ2ZZZZ Detoxification Services for Substance Abuse Treatment (ICD-10-PCS; principal; 2023-07-08)
DX: F10.230 Alcohol dependence with withdrawal, uncomplicated (principal); F14.20 Cocaine dependence, uncomplicated; F12.20 Cannabis dependence, uncomplicated; F17.210 Nicotine dependence, cigarettes, uncomplicated; F20.9 Schizophrenia, unspecified; H54.61 Unqualified visual loss, right eye, normal vision left eye; J45.20 Mild intermittent asthma, uncomplicated; R26.89 Other abnormalities of gait and mobility; R79.89 Other specified abnormal findings of blood chemistry; Z99.89 Dependence on other enabling machines and devices; Z87.828 Personal history of other (healed) physical injury and trauma; Z88.8 Allergy status to other drugs, medicaments and biological substances
CPT/HCPCS: 36415; 80053; 80305; 80307; 82140; 85027; 86780; 93005; 93010

== ENCOUNTER 2023-10-07 17:07 | Inpatient (IN) | payer OTHER ==
[2023-10-07 18:22] VITALS: BMI 20.7
[2023-10-07] MEDS ORDERED: POLYETHYLENE GLYCOL (HEALTHYLAX) 3350 17 GM PACKET PO PRN (19:41)
[2023-10-07] MEDS ORDERED: NALOXONE HCL 0.4 MG/ML VIAL IM PRN (19:41)
[2023-10-07] MEDS ORDERED: BENZONATATE 200 MG CAPSULE PO PRN (19:41)
[2023-10-07] MEDS ORDERED: BENZOCAINE/MENTHOL (CHLORASEPTIC ) LOZENGE MM PRN (19:41)
[2023-10-07] MEDS ORDERED: NICOTINE POLACRILEX 2 MG GUM BUC PRN (19:41)
[2023-10-07] MEDS ORDERED: MAGNESIUM HYDROX 2400MG/30ML ORAL SUSPENSION 30 ML CUP PO PRN (19:41)
[2023-10-07] MEDS ORDERED: NICOTINE POLACRILEX 2 MG LOZENGE BC PRN (19:41)
[2023-10-07] MEDS ORDERED: MAG HYDROX/AL HYDROX/SIMETH 30 ML UNIT-DOSE CUP PO PRN (19:41)
[2023-10-07] MEDS ORDERED: LOPERAMIDE HCL 2 MG CAPSULE PO PRN (19:41)
[2023-10-07] MEDS ORDERED: guaiFENesin 600 MG TABLET.ER (FP) PO PRN (19:41)
[2023-10-07] MEDS ORDERED: NALOXONE (NARCAN) HCL 4 MG/0.1 ML SPRAY NS PRN (19:41)
[2023-10-07] MEDS ORDERED: ACETAMINOPHEN 325 MG TABLET (FP) PO PRN (19:41)
[2023-10-07] MEDS: THIAMINE 100 MG TABLET PO SCH (23:28)
[2023-10-07] MEDS: MELATONIN 5 MG TABLETS PO SCH (23:28)
[2023-10-08 09:22] LABS: CHLORIDE 108 mmol/L (98-107); POTASSIUM 4.2 mmol/L (3.5-5.1); SODIUM 140 mmol/L (136-145)
[2023-10-08 09:31] LABS: ANION GAP 6 mmol/L (4-13); BLOOD UREA NITROGEN 9.3 mg/dL (7-18); CALCIUM 8.4 mg/dL (8.5-10.1); CO2 26 mmol/L (21-32); GLUCOSE,RANDOM 71 mg/dL (74-106)
[2023-10-08 09:32] LABS: HEMATOCRIT 39.1 % (35.4-49); HEMOGLOBIN 12.9 GM/dL (11.7-16.9); MCH 29.4 pg (25.7-33.7); MEAN CELL VOLUME 89.3 fl (80-96); MEAN PLT VOLUME 7.8 fl (7.5-11.1); PLATELET COUNT 227 10^3/uL (134-434); RBC 4.38 M/mm3 (4.00-5.60)
[2023-10-08 09:35] LABS: CREATININE 0.7 mg/dL (0.55-1.3); SGOT/AST 13 U/L (15-37); SGPT/ALT 16 U/L (13-61)
[2023-10-08 09:36] LABS: TOT PROT 6.2 g/dl (6.4-8.2)
[2023-10-08 09:37] LABS: ALK PHOS 55 U/L (45-117)
[2023-10-08] MEDS: PRENATAL VITAMINS W/ FOLIC ACID TABLET (FP) PO SCH (10:18)
[2023-10-09] MEDS: ALBUTEROL SO4 HFA INHALER IH PRN (10:29)
[2023-10-09 15:29] LABS: PH,URINE 6.5 (5.0-8.0); URINE APPEARANCE CLEAR; URINE BILIRUBIN NEGATIVE (NEGATIVE); URINE COLOR YELLOW; URINE GLUCOSE (UA) NEGATIVE (NEGATIVE); URINE KETONE NEGATIVE (NEGATIVE); URINE LEUK ESTERASE NEGATIVE (NEGATIVE); URINE NITRITE NEGATIVE (NEGATIVE); URINE PROTEIN NEGATIVE (NEGATIVE)
[2023-10-09 15:31] LABS: EPI CELLS 12 /uL (0-25.1); HYALINE CASTS 1 /uL (0-3.1); URINE BACTERIA 16 /uL (0-1359); URINE RBC 5 /uL (0-23.9); URINE WBC 12 /uL (0-25.8)
[2023-10-09 19:55] LABS: EPI CELLS 10 /uL (0-25.1); HYALINE CASTS 0 /uL (0-3.1); URINE APPEARANCE CLEAR; URINE BACTERIA 1 /uL (0-1359); URINE BILIRUBIN NEGATIVE (NEGATIVE); URINE COLOR YELLOW; URINE GLUCOSE (UA) NEGATIVE (NEGATIVE); URINE KETONE NEGATIVE (NEGATIVE); URINE LEUK ESTERASE NEGATIVE (NEGATIVE); URINE NITRITE NEGATIVE (NEGATIVE); URINE PROTEIN NEGATIVE (NEGATIVE); URINE RBC 22 /uL (0-23.9); URINE WBC 14 /uL (0-25.8)
[2023-10-11 09:08] VITALS: RESP 18
[2023-10-12 06:24] VITALS: TEMP 97.7
[2023-10-12 09:31] VITALS: BP 121/71; PULSE 62
== END 2023-10-12 13:32 | disposition home or self-care (01) | DRG 772 ==
LOC: YASAS 17:07 → Y3NR 21:23 → Y3E 10-08 15:28 → Y3NR 10-08 23:10 → Y3W 10-09 12:35
PROVIDERS: ADMIT Allergy & Immunology; ATTEND Psychiatry & Neurology Pain Medicine
PROC: HZ42ZZZ Group Counseling for Substance Abuse Treatment, Cognitive-Behavioral (ICD-10-PCS; principal; 2023-10-07)
DX: F10.20 Alcohol dependence, uncomplicated (principal); F14.20 Cocaine dependence, uncomplicated; F12.20 Cannabis dependence, uncomplicated; F17.210 Nicotine dependence, cigarettes, uncomplicated; F20.9 Schizophrenia, unspecified; F19.282 Other psychoactive substance dependence with psychoactive substance-induced sleep disorder; H54.61 Unqualified visual loss, right eye, normal vision left eye; J45.20 Mild intermittent asthma, uncomplicated; Z20.2 Contact with and (suspected) exposure to infections with a predominantly sexual mode of transmission; Z59.01 Sheltered homelessness; Z88.8 Allergy status to other drugs, medicaments and biological substances
CPT/HCPCS: 36415; 80053; 80305; 80307; 81003; 85027; 87811

== ENCOUNTER 2023-11-19 18:07 | Inpatient (IN) | payer OTHER ==
[2023-11-19 19:10] VITALS: BMI 21.2
[2023-11-19] MEDS ORDERED: IBUPROFEN 600 MG TABLET (FP) PO PRN (20:29)
[2023-11-19] MEDS ORDERED: NALOXONE (NARCAN) HCL 4 MG/0.1 ML SPRAY NS PRN (20:29)
[2023-11-19] MEDS ORDERED: BENZOCAINE/MENTHOL (CHLORASEPTIC ) LOZENGE MM PRN (20:29)
[2023-11-19] MEDS ORDERED: MAG HYDROX/AL HYDROX/SIMETH 30 ML UNIT-DOSE CUP PO PRN (20:29)
[2023-11-19] MEDS ORDERED: guaiFENesin 600 MG TABLET.ER (FP) PO PRN (20:29)
[2023-11-19] MEDS ORDERED: NICOTINE POLACRILEX 2 MG GUM BUC PRN (20:29)
[2023-11-19] MEDS ORDERED: ONDANSETRON *ODT* 4 MG TABLET SL PRN (20:29)
[2023-11-19] MEDS ORDERED: BISMUTH SUBSALICYLATE 524 MG/30 ML PO PRN (20:29)
[2023-11-19] MEDS ORDERED: IBUPROFEN 400 MG TABLET (FP) PO PRN (20:29)
[2023-11-19] MEDS ORDERED: LOPERAMIDE HCL 2 MG CAPSULE PO PRN (20:29)
[2023-11-19] MEDS ORDERED: DICYCLOMINE HCL 10 MG CAPSULE PO PRN (20:29)
[2023-11-19] MEDS ORDERED: BENZONATATE 200 MG CAPSULE PO PRN (20:29)
[2023-11-19] MEDS ORDERED: MAGNESIUM HYDROX 2400MG/30ML ORAL SUSPENSION 30 ML CUP PO PRN (20:29)
[2023-11-19] MEDS ORDERED: ACETAMINOPHEN 325 MG TABLET (FP) PO PRN (20:29)
[2023-11-19] MEDS ORDERED: POLYETHYLENE GLYCOL (HEALTHYLAX) 3350 17 GM PACKET PO PRN (20:29)
[2023-11-19] MEDS: MELATONIN 5 MG TABLETS PO SCH (21:58)
[2023-11-19] MEDS: METHOCARBAMOL 500 MG TABLET PO PRN (21:58)
[2023-11-19] MEDS: THIAMINE 100 MG TABLET PO SCH (21:58)
[2023-11-20] MEDS ORDERED: ALBUTEROL SO4 HFA INHALER IH PRN (08:25)
[2023-11-20] MEDS: NALTREXONE HCL 50 MG TABLET PO SCH (09:32)
[2023-11-20] MEDS: PRENATAL VITAMINS W/ FOLIC ACID TABLET (FP) PO SCH (09:32)
[2023-11-20] MEDS: NICOTINE 21 MG/24 HOURS TOPICAL PATCH TD SCH (09:32)
[2023-11-20 14:28] LABS: HEMATOCRIT 40.3 % (35.4-49); HEMOGLOBIN 13.2 GM/dL (11.7-16.9); MCH 29.3 pg (25.7-33.7); MCHC 32.7 g/dl (32.0-35.9); MEAN CELL VOLUME 89.8 fl (80-96); MEAN PLT VOLUME 7.8 fl (7.5-11.1); PLATELET COUNT 269 10^3/uL (134-434); RBC 4.49 M/mm3 (4.00-5.60); RDW 14.7 % (11.9-15.9); WHITE BLOOD COUNT 4.6 K/mm3 (4.0-10.0)
[2023-11-20 15:37] LABS: CHLORIDE 105 mmol/L (98-107); POTASSIUM 3.9 mmol/L (3.5-5.1); SODIUM 138 mmol/L (136-145)
[2023-11-20 16:15] LABS: ALBUMIN 3.2 g/dl (3.4-5.0); ANION GAP 7 mmol/L (4-13); CALCIUM 8.9 mg/dL (8.5-10.1); CO2 26 mmol/L (21-32)
[2023-11-20 16:16] LABS: GLUCOSE,RANDOM 125 mg/dL (74-106)
[2023-11-20 16:18] LABS: SGOT/AST 12 U/L (15-37); SGPT/ALT 17 U/L (13-61)
[2023-11-20 16:19] LABS: BILIRUBIN,TOTAL 1.2 mg/dL (0.2-1); CREATININE 0.8 mg/dL (0.55-1.3); TOT PROT 6.6 g/dl (6.4-8.2)
[2023-11-20 16:21] LABS: ALK PHOS 60 U/L (45-117)
[2023-11-21 07:02] VITALS: TEMP 97.7
[2023-11-21 09:40] VITALS: BP 117/68; PULSE 72; RESP 18
[2023-11-21] MEDS: NALOXONE (NYS OPIOID OVERDOSE PROGRAM) 4 MG/0.1 ML SPRAY NS PRN (10:30)
== END 2023-11-21 10:49 | disposition home or self-care (01) | DRG 774 ==
LOC: YASAS 18:07 → Y6N 21:12
PROVIDERS: ADMIT Allergy & Immunology; ATTEND Allergy & Immunology
PROC: HZ2ZZZZ Detoxification Services for Substance Abuse Treatment (ICD-10-PCS; principal; 2023-11-19)
DX: F10.230 Alcohol dependence with withdrawal, uncomplicated (principal); F14.20 Cocaine dependence, uncomplicated; F12.20 Cannabis dependence, uncomplicated; F17.210 Nicotine dependence, cigarettes, uncomplicated; F19.282 Other psychoactive substance dependence with psychoactive substance-induced sleep disorder; H54.61 Unqualified visual loss, right eye, normal vision left eye; J45.20 Mild intermittent asthma, uncomplicated; M16.12 Unilateral primary osteoarthritis, left hip; Z99.89 Dependence on other enabling machines and devices; Z86.19 Personal history of other infectious and parasitic diseases; Z88.8 Allergy status to other drugs, medicaments and biological substances
CPT/HCPCS: 36415; 80053; 80305; 80307; 85027; 86780; 93005; 93010

== ENCOUNTER 2023-12-19 13:42 | Inpatient (IN) | payer OTHER ==
[2023-12-19] MEDS ORDERED: ONDANSETRON *ODT* 4 MG TABLET SL PRN (16:12)
[2023-12-19] MEDS ORDERED: NICOTINE POLACRILEX 2 MG LOZENGE BC PRN (16:12)
[2023-12-19] MEDS ORDERED: BISMUTH SUBSALICYLATE 524 MG/30 ML PO PRN (16:12)
[2023-12-19] MEDS ORDERED: LOPERAMIDE HCL 2 MG CAPSULE PO PRN (16:12)
[2023-12-19] MEDS ORDERED: NICOTINE POLACRILEX 2 MG GUM BUC PRN (16:12)
[2023-12-19] MEDS ORDERED: MAGNESIUM HYDROX 2400MG/30ML ORAL SUSPENSION 30 ML CUP PO PRN (16:12)
[2023-12-19] MEDS ORDERED: guaiFENesin 600 MG TABLET.ER (FP) PO PRN (16:12)
[2023-12-19] MEDS ORDERED: BENZOCAINE/MENTHOL (CHLORASEPTIC ) LOZENGE MM PRN (16:12)
[2023-12-19] MEDS ORDERED: IBUPROFEN 600 MG TABLET (FP) PO PRN (16:12)
[2023-12-19] MEDS ORDERED: POLYETHYLENE GLYCOL (HEALTHYLAX) 3350 17 GM PACKET PO PRN (16:12)
[2023-12-19] MEDS ORDERED: DICYCLOMINE HCL 10 MG CAPSULE PO PRN (16:12)
[2023-12-19] MEDS ORDERED: BENZONATATE 200 MG CAPSULE PO PRN (16:12)
[2023-12-19] MEDS ORDERED: IBUPROFEN 400 MG TABLET (FP) PO PRN (16:12)
[2023-12-19] MEDS ORDERED: MAG HYDROX/AL HYDROX/SIMETH 30 ML UNIT-DOSE CUP PO PRN (16:12)
[2023-12-19] MEDS ORDERED: NALOXONE (NARCAN) HCL 4 MG/0.1 ML SPRAY NS PRN (16:12)
[2023-12-19] MEDS ORDERED: ALBUTEROL SO4 HFA INHALER IH PRN (16:15)
[2023-12-19] MEDS: LIDOCAINE 5% TOPICAL PATCH TP SCH (18:26)
[2023-12-19] MEDS: METHOCARBAMOL 500 MG TABLET PO PRN (18:27)
[2023-12-19] MEDS: ACETAMINOPHEN 325 MG TABLET (FP) PO PRN (18:27)
[2023-12-19] MEDS: THIAMINE 100 MG TABLET PO SCH (22:53)
[2023-12-19] MEDS: hydrOXYzine PAMOATE 25 MG CAPSULE (FP) PO PRN (22:53)
[2023-12-19] MEDS: MELATONIN 5 MG TABLETS PO SCH (22:54)
[2023-12-19] MEDS: LIDOCAINE PATCH REMOVAL MC SCH (22:54)
[2023-12-20] MEDS: PRENATAL VITAMINS W/ FOLIC ACID TABLET (FP) PO SCH (10:42)
[2023-12-20] MEDS: NALTREXONE HCL 50 MG TABLET PO SCH (10:43)
[2023-12-20] MEDS: FLU VACCINE (FLULAVAL) PF 45 MCG/0.5 ML SYRINGE 2024-2025 IM ONE (12:05)
[2023-12-20 13:22] LABS: HEMATOCRIT 39.7 % (35.4-49); HEMOGLOBIN 13.2 GM/dL (11.7-16.9); MCH 29.9 pg (25.7-33.7); MCHC 33.1 g/dl (32.0-35.9); MEAN CELL VOLUME 90.1 fl (80-96); MEAN PLT VOLUME 7.3 fl (7.5-11.1); PLATELET COUNT 244 10^3/uL (134-434); RBC 4.41 M/mm3 (4.00-5.60); RDW 14.4 % (11.9-15.9); WHITE BLOOD COUNT 3.7 K/mm3 (4.0-10.0)
[2023-12-20 13:55] LABS: CHLORIDE 107 mmol/L (98-107); POTASSIUM 3.7 mmol/L (3.5-5.1); SODIUM 140 mmol/L (136-145)
[2023-12-20 14:03] LABS: BLOOD UREA NITROGEN 10.7 mg/dL (7-18)
[2023-12-20 14:04] LABS: BILIRUBIN,TOTAL 0.9 mg/dL (0.2-1)
[2023-12-20 14:05] LABS: ANION GAP 5 mmol/L (4-13); CO2 27 mmol/L (21-32); GLUCOSE,RANDOM 90 mg/dL (74-106); SGOT/AST 15 U/L (15-37); SGPT/ALT 17 U/L (13-61)
[2023-12-20 14:06] LABS: ALK PHOS 55 U/L (45-117); CREATININE 0.7 mg/dL (0.55-1.3)
[2023-12-20 14:12] LABS: TOT PROT 6.3 g/dl (6.4-8.2)
[2023-12-20 14:28] LABS: ALBUMIN 3.2 g/dl (3.4-5.0)
[2023-12-21 06:36] VITALS: TEMP 97.6
[2023-12-21 10:01] VITALS: BP 105/64; PULSE 60; RESP 14
[2023-12-21] MEDS: NALOXONE (NYS OPIOID OVERDOSE PROGRAM) 4 MG/0.1 ML SPRAY NS ONE (10:57)
== END 2023-12-21 12:49 | disposition home or self-care (01) | DRG 774 ==
LOC: YASAS 13:42 → Y3N 17:29
PROVIDERS: ADMIT Allergy & Immunology; ATTEND Surgery
PROC: HZ2ZZZZ Detoxification Services for Substance Abuse Treatment (ICD-10-PCS; principal; 2023-12-19)
DX: F10.20 Alcohol dependence, uncomplicated (principal); F14.20 Cocaine dependence, uncomplicated; F12.20 Cannabis dependence, uncomplicated; F17.210 Nicotine dependence, cigarettes, uncomplicated; F25.9 Schizoaffective disorder, unspecified; M16.12 Unilateral primary osteoarthritis, left hip; Z99.89 Dependence on other enabling machines and devices; Z59.01 Sheltered homelessness; Z88.8 Allergy status to other drugs, medicaments and biological substances
CPT/HCPCS: 36415; 80053; 80305; 80307; 85027; 86780; 86803; 93005; 93010

== ENCOUNTER 2024-01-22 14:12 | Inpatient (IN) | payer OTHER ==
[2024-01-22] MEDS ORDERED: guaiFENesin 600 MG TABLET.ER (FP) PO PRN (16:31)
[2024-01-22] MEDS ORDERED: IBUPROFEN 600 MG TABLET (FP) PO PRN (16:31)
[2024-01-22] MEDS ORDERED: MAGNESIUM HYDROX 2400MG/30ML ORAL SUSPENSION 30 ML CUP PO PRN (16:31)
[2024-01-22] MEDS ORDERED: ACETAMINOPHEN 325 MG TABLET (FP) PO PRN (16:31)
[2024-01-22] MEDS ORDERED: IBUPROFEN 400 MG TABLET (FP) PO PRN (16:31)
[2024-01-22] MEDS ORDERED: BENZONATATE 200 MG CAPSULE PO PRN (16:31)
[2024-01-22] MEDS ORDERED: LOPERAMIDE HCL 2 MG CAPSULE PO PRN (16:31)
[2024-01-22] MEDS ORDERED: hydrOXYzine PAMOATE 25 MG CAPSULE (FP) PO PRN (16:31)
[2024-01-22] MEDS ORDERED: POLYETHYLENE GLYCOL (HEALTHYLAX) 3350 17 GM PACKET PO PRN (16:31)
[2024-01-22] MEDS ORDERED: MAG HYDROX/AL HYDROX/SIMETH 30 ML UNIT-DOSE CUP PO PRN (16:31)
[2024-01-22] MEDS ORDERED: BENZOCAINE/MENTHOL (CHLORASEPTIC ) LOZENGE MM PRN (16:31)
[2024-01-22] MEDS ORDERED: NALOXONE (NARCAN) HCL 4 MG/0.1 ML SPRAY NS PRN (16:31)
[2024-01-22 16:41] VITALS: RESP 16; BMI 21.1
[2024-01-22] MEDS: MELATONIN 5 MG TABLETS PO SCH (22:38)
[2024-01-22] MEDS: THIAMINE 100 MG TABLET PO SCH (22:38)
[2024-01-23] MEDS: PRENATAL VITAMINS W/ FOLIC ACID TABLET (FP) PO SCH (10:16)
[2024-01-23 11:25] LABS: HEMOGLOBIN 13.3 GM/dL (11.7-16.9); MCH 29.2 pg (25.7-33.7); MCHC 32.5 g/dl (32.0-35.9); MEAN CELL VOLUME 89.8 fl (80-96); MEAN PLT VOLUME 7.3 fl (7.5-11.1); PLATELET COUNT 272 10^3/uL (134-434); RBC 4.56 M/mm3 (4.00-5.60); RDW 14.2 % (11.9-15.9); WHITE BLOOD COUNT 3.5 K/mm3 (4.0-10.0)
[2024-01-23 11:56] LABS: CHLORIDE 105 mmol/L (98-107); SODIUM 137 mmol/L (136-145)
[2024-01-23 12:01] LABS: ALBUMIN 3.4 g/dl (3.4-5.0); ANION GAP 6 mmol/L (4-13); BLOOD UREA NITROGEN 10.5 mg/dL (7-18); CALCIUM 8.9 mg/dL (8.5-10.1); CO2 27 mmol/L (21-32); GLUCOSE,RANDOM 82 mg/dL (74-106)
[2024-01-23 12:04] LABS: CREATININE 0.7 mg/dL (0.55-1.3); SGOT/AST 17 U/L (15-37); SGPT/ALT 19 U/L (13-61)
[2024-01-23 12:05] LABS: BILIRUBIN,TOTAL 0.9 mg/dL (0.2-1); TOT PROT 6.7 g/dl (6.4-8.2)
[2024-01-23 12:06] LABS: ALK PHOS 56 U/L (45-117)
[2024-01-23] MEDS ORDERED: ALBUTEROL SO4 HFA INHALER IH PRN (16:30)
[2024-01-23] MEDS ORDERED: DICLOFENAC SODIUM 25 MG TABLET.DR PO PRN (16:39)
[2024-01-23] MEDS ORDERED: METHYL SALICYLATE/MENTHOL 30 GM TUBE TP PRN ×2 (16:40→17:08)
[2024-01-23] MEDS: QUEtiapine FUMARATE 50 MG TABLET PO SCH (21:28)
[2024-01-24] MEDS ORDERED: NALTREXONE HCL 50 MG TABLET PO SCH (10:00)
[2024-01-26 06:40] VITALS: BP 110/79; PULSE 77; TEMP 97.6
[2024-01-26] MEDS: QUEtiapine FUMARATE 50 MG TABLET PO PRN (10:18)
[2024-01-26 12:51] LABS: EPI CELLS >36 /uL (0-25.1); HYALINE CASTS 1 /uL (0-3.1); PH,URINE 7.5 (5.0-8.0); URINE APPEARANCE TURBID; URINE BACTERIA >9,000 /uL (0-1359); URINE BILIRUBIN NEGATIVE (NEGATIVE); URINE COLOR YELLOW; URINE GLUCOSE (UA) NEGATIVE (NEGATIVE); URINE KETONE NEGATIVE (NEGATIVE); URINE LEUK ESTERASE 1+ (NEGATIVE); URINE NITRITE NEGATIVE (NEGATIVE); URINE PROTEIN NEGATIVE (NEGATIVE); URINE RBC 13 /uL (0-23.9); URINE UROBILINOGEN 0.2 mg/dL (0.2-1.0); URINE WBC 63 /uL (0-25.8)
[2024-01-26] MEDS: NALOXONE (NYS OPIOID OVERDOSE PROGRAM) 4 MG/0.1 ML SPRAY NS SCH (13:55)
[2024-01-26] MEDS ORDERED: OLANZapine 10 MG TABLET PO SCH (22:00)
[2024-01-27] MEDS ORDERED: OLANZapine 2.5 MG TABLET PO PRN ×2 (08:00)
[2024-01-27] MEDS ORDERED: QUEtiapine FUMARATE 25 MG TABLET PO PRN (08:00)
== END 2024-01-26 14:02 | disposition left against medical advice (07) | DRG 770 ==
LOC: YASAS 14:12 → Y3NR 18:30 → Y3E 01-23 11:34
PROVIDERS: ADMIT Psychiatry & Neurology Pain Medicine; ATTEND Psychiatry & Neurology Pain Medicine
PROC: HZ42ZZZ Group Counseling for Substance Abuse Treatment, Cognitive-Behavioral (ICD-10-PCS; principal; 2024-01-22)
DX: F10.20 Alcohol dependence, uncomplicated (principal); F14.20 Cocaine dependence, uncomplicated; F11.20 Opioid dependence, uncomplicated; F12.20 Cannabis dependence, uncomplicated; F17.210 Nicotine dependence, cigarettes, uncomplicated; F25.9 Schizoaffective disorder, unspecified; F41.9 Anxiety disorder, unspecified; F32.A Depression, unspecified; J45.20 Mild intermittent asthma, uncomplicated; H54.61 Unqualified visual loss, right eye, normal vision left eye; M16.12 Unilateral primary osteoarthritis, left hip; I25.2 Old myocardial infarction; Z99.89 Dependence on other enabling machines and devices; Z88.8 Allergy status to other drugs, medicaments and biological substances
CPT/HCPCS: 36415; 80053; 80307; 81003; 85027; 86780; 93005; 93010

== ENCOUNTER 2024-02-22 10:06 | Inpatient (IN) | payer OTHER ==
[2024-02-22] MEDS ORDERED: LOPERAMIDE HCL 2 MG CAPSULE PO PRN (11:04)
[2024-02-22] MEDS ORDERED: hydrOXYzine PAMOATE 25 MG CAPSULE (FP) PO PRN (11:04)
[2024-02-22] MEDS ORDERED: IBUPROFEN 600 MG TABLET (FP) PO PRN (11:04)
[2024-02-22] MEDS ORDERED: BENZOCAINE/MENTHOL (CHLORASEPTIC ) LOZENGE MM PRN (11:04)
[2024-02-22] MEDS ORDERED: IBUPROFEN 400 MG TABLET (FP) PO PRN (11:04)
[2024-02-22] MEDS ORDERED: POLYETHYLENE GLYCOL (HEALTHYLAX) 3350 17 GM PACKET PO PRN (11:04)
[2024-02-22] MEDS ORDERED: BENZONATATE 200 MG CAPSULE PO PRN (11:04)
[2024-02-22] MEDS ORDERED: MAG HYDROX/AL HYDROX/SIMETH 30 ML UNIT-DOSE CUP PO PRN (11:04)
[2024-02-22] MEDS ORDERED: NALOXONE (NARCAN) HCL 4 MG/0.1 ML SPRAY NS PRN (11:04)
[2024-02-22] MEDS ORDERED: guaiFENesin 600 MG TABLET.ER (FP) PO PRN (11:04)
[2024-02-22] MEDS ORDERED: MAGNESIUM HYDROX 2400MG/30ML ORAL SUSPENSION 30 ML CUP PO PRN (11:04)
[2024-02-22] MEDS ORDERED: ALBUTEROL SO4 HFA INHALER IH PRN (11:10)
[2024-02-22] MEDS ORDERED: NICOTINE 14 MG/24 HOURS TOPICAL PATCH TD ONE (12:20)
[2024-02-22] MEDS ORDERED: PRENATAL VITAMINS W/ FOLIC ACID TABLET (FP) PO ONE (12:21)
[2024-02-22] MEDS: PRENATAL VITAMINS W/ FOLIC ACID TABLET (FP) PO SCH (12:23)
[2024-02-22] MEDS: NICOTINE 14 MG/24 HOURS TOPICAL PATCH TD SCH (12:23)
[2024-02-22 12:39] VITALS: BMI 21.3
[2024-02-22] MEDS: MELATONIN 5 MG TABLETS PO SCH (21:31)
[2024-02-22] MEDS: THIAMINE 100 MG TABLET PO SCH (21:32)
[2024-02-23] MEDS: FLU VACCINE (FLULAVAL) PF 45 MCG/0.5 ML SYRINGE 2024-2025 IM ONE (13:15)
[2024-02-23 13:53] LABS: HEMATOCRIT 41.7 % (35.4-49); HEMOGLOBIN 13.6 GM/dL (11.7-16.9); MCH 28.9 pg (25.7-33.7); MCHC 32.7 g/dl (32.0-35.9); MEAN CELL VOLUME 88.2 fl (80-96); MEAN PLT VOLUME 7.2 fl (7.5-11.1); PLATELET COUNT 294 10^3/uL (134-434); RBC 4.72 M/mm3 (4.00-5.60); RDW 14.2 % (11.9-15.9); WHITE BLOOD COUNT 5.4 K/mm3 (4.0-10.0)
[2024-02-23 14:44] LABS: SYPHILIS W/ RPR CONF NON-REACTIVE (NONREACTIVE)
[2024-02-23 14:58] LABS: URINE APPEARANCE CLEAR; URINE COLOR YELLOW
[2024-02-23 14:59] LABS: EPI CELLS 2.7 /uL (0-25.1); PH,URINE 5.5 (5.0-8.0); URINE BILIRUBIN NEGATIVE (NEGATIVE); URINE GLUCOSE (UA) NEGATIVE (NEGATIVE); URINE KETONE NEGATIVE (NEGATIVE); URINE LEUK ESTERASE 1+ (NEGATIVE); URINE NITRITE NEGATIVE (NEGATIVE); URINE PROTEIN NEGATIVE (NEGATIVE); URINE RBC 5 /uL (0-23.9); URINE UROBILINOGEN 0.2 mg/dL (0.2-1.0); URINE WBC 196.2 /uL (0-25.8)
[2024-02-23 15:00] LABS: HYALINE CASTS 1.5 /uL (0-3.1); URINE BACTERIA 125.5 /uL (0-1359)
[2024-02-23 15:15] LABS: HIV INTERPRETATION NEGATIVE (NEGATIVE)
[2024-02-23 15:32] LABS: POTASSIUM 4.3 mmol/L (3.5-5.1)
[2024-02-23 15:35] LABS: ALBUMIN 3.3 g/dl (3.4-5.0); BLOOD UREA NITROGEN 9.9 mg/dL (7-18)
[2024-02-23 15:39] LABS: CREATININE 0.7 mg/dL (0.55-1.3)
[2024-02-23 15:40] LABS: BILIRUBIN,TOTAL 0.6 mg/dL (0.2-1); TOT PROT 6.8 g/dl (6.4-8.2)
[2024-02-23] MEDS: OLANZapine 5 MG TABLET PO SCH (21:04)
[2024-02-24] MEDS: ACETAMINOPHEN 325 MG TABLET (FP) PO PRN (11:40)
[2024-02-26 06:35] VITALS: BP 100/69; PULSE 91; RESP 16; TEMP 98.2
[2024-02-26] MEDS: NALOXONE (NYS OPIOID OVERDOSE PROGRAM) 4 MG/0.1 ML SPRAY NS SCH (11:39)
== END 2024-02-26 11:45 | disposition left against medical advice (07) | DRG 770 ==
LOC: YASAS 10:06 → Y3W 12:27
PROVIDERS: ADMIT Psychiatry & Neurology Pain Medicine; ATTEND Psychiatry & Neurology Pain Medicine
PROC: HZ42ZZZ Group Counseling for Substance Abuse Treatment, Cognitive-Behavioral (ICD-10-PCS; principal; 2024-02-22)
DX: F10.20 Alcohol dependence, uncomplicated (principal); F14.20 Cocaine dependence, uncomplicated; F12.20 Cannabis dependence, uncomplicated; F17.210 Nicotine dependence, cigarettes, uncomplicated; F20.9 Schizophrenia, unspecified; F32.A Depression, unspecified; F41.9 Anxiety disorder, unspecified; J45.20 Mild intermittent asthma, uncomplicated; M16.12 Unilateral primary osteoarthritis, left hip; Z86.19 Personal history of other infectious and parasitic diseases; Z86.69 Personal history of other diseases of the nervous system and sense organs; Z88.8 Allergy status to other drugs, medicaments and biological substances
CPT/HCPCS: 36415; 80053; 80305; 80307; 81003; 85027; 86780; 86803; 87389; 87811; 90656; 93005; 93010; G0008